=== PATIENT | male | born 1940 | race Caucasian/White ===

== ENCOUNTER 2017-09-18 09:45 | Inpatient (IN) | payer MEDICARE ==
[~2017-09-18] VITALS: Ht 172.7 cm; Wt 63.5 kg
[~2017-09-18 09:45] MED LIST: ASPI-482 PO; EZET1TAB35 PO; FAMO20TA5 PO; LOSA50TA6 PO; MULT-404 PO; PHEN100C4 PO; TAMS0.4C97 PO; VITA150T PO
[2017-09-18 10:27] LABS: BASO # 0.1 x10^3/uL (0.0-0.2); BASO % 1 % (0-3); EOS # 0.1 x10^3/uL (0.0-0.7); EOS % 2 % (0-3); HEMATOCRIT 38.8 % (39.0-53.0); HEMOGLOBIN 12.9 g/dL (13.0-17.5); LYMPH # 1.6 x10^3/uL (1.0-4.8); LYMPH % 21 % (24-48); MEAN CORPUSCULAR HEMOGLOBIN 33 pg (25-35); MEAN CORPUSCULAR HGB CONC 33 g/dL (31-37); MEAN CORPUSCULAR VOLUME 99 fL (79-100); MONO # 0.9 x10^3/uL (0.0-1.1); MONO % 13 % (0-9); NEUT # 4.5 x10^3uL (1.8-7.7); NEUT % 62 % (31-73); PLATELET COUNT 325 x10^3/uL (140-400); RED BLOOD COUNT 3.93 x10^6/uL (4.30-5.70); RED CELL DISTRIBUTION WIDTH 14.1 % (11.5-14.5); WHITE BLOOD COUNT 7.2 x10^3/uL (4.0-11.0)
--- NOTE | 2017-09-18 10:46 | PHYS DOC ---
Past History Past Medical History: CAD, Cancer, CVA, High Cholesterol, Hypertension, Other Past Surgical History: Appendectomy, Other Smoking: Non-smoker Alcohol Use: None Drug Use: None Adult General Chief Complaint Chief Complaint: UPPER EXTREMITY PAIN [facility] HPI 77-year-old female patient brought in by EMS because of left arm pain. Patient had multiple medical problems including coronary artery disease and stent placement, hypertension, dyslipidemia, BPH, bladder cancer and wanted fever and COPD. Patient complaining of sudden onset of left upper extremity pain from shoulder to wrist as a moderate and aching pain and rated his pain 5/10 that consulted at 9 AM and activated his life alert. Patient states the pain resolved after about 20 minutes at arrival to ER. Patient denies chest pain, shortness of breath, nausea vomiting, new focal neuro deficit, headache, fever and chills. Patient has chronic cervical injury and CT 8 paralysis with left hand weakness and contraction and deformity. Review of Systems Review of Systems Constitutional: Denies fever or chills [] Eyes: Denies change in visual acuity, redness, or eye pain [] HENT: Denies nasal congestion or sore throat [] Respiratory: Denies cough or shortness of breath [] Cardiovascular: No additional information not addressed in HPI [] GI: Denies abdominal pain, nausea, vomiting, bloody stools or diarrhea [] : Denies dysuria or hematuria [] Musculoskeletal: Denies back pain, reports left upper extremity pain[] Integument: Denies rash or skin lesions [] Neurologic: Denies headache, focal weakness or sensory changes [] Endocrine: Denies polyuria or polydipsia [] All other systems were reviewed and found to be within normal limits, except as documented in this note. Allergies Allergies Allergies Coded Allergies Type Severity Reaction Last Updated Verified No Known Drug Allergies 09/18/17 No Physical Exam Physical Exam Constitutional: Well developed, well nourished, no acute distress, non-toxic appearance. [] HENT: Normocephalic, atraumatic, bilateral external ears normal, oropharynx moist, no oral exudates, nose normal. [] Eyes: PERRLA, EOMI, conjunctiva normal, no discharge. [] Neck: Normal range of motion, no tenderness, supple, no stridor. [] Cardiovascular:Heart rate regular rhythm, no murmur [] Lungs & Thorax: Bilateral breath sounds clear to auscultation [] Abdomen: Bowel sounds normal, soft, no tenderness, no masses, no pulsatile masses. [] Skin: Warm, dry, no erythema, no rash. [] Back: No tenderness, no CVA tenderness. [] Extremities: No tenderness, no cyanosis, no clubbing, , no edema. [] Neurologic: Alert and oriented X 3, normal motor function, chronic left-handed weakness Psychologic: Affect normal, judgement normal, mood normal. [] Current Patient Data Vital Signs Vital Signs Date Time Temp Pulse Resp B/P (MAP) Pulse Ox O2 Delivery O2 Flow Rate FiO2 09/18/17 09:59 97.7 92 16 97 Room Air Lab Results Laboratory Tests Test 09/18/17 10:14 White Blood Count 7.2 x10^3/uL (4.0-11.0) Red Blood Count 3.93 x10^6/uL (4.30-5.70) L Hemoglobin 12.9 g/dL (13.0-17.5) L Hematocrit 38.8 % (39.0-53.0) L Mean Corpuscular Volume 99 fL (79-100) Mean Corpuscular Hemoglobin 33 pg (25-35) Mean Corpuscular Hemoglobin Concent 33 g/dL (31-37) Red Cell Distribution Width 14.1 % (11.5-14.5) Platelet Count 325 x10^3/uL (140-400) Neutrophils (%) (Auto) 62 % (31-73) Lymphocytes (%) (Auto) 21 % (24-48) L Monocytes (%) (Auto) 13 % (0-9) H Eosinophils (%) (Auto) 2 % (0-3) Basophils (%) (Auto) 1 % (0-3) Neutrophils # (Auto) 4.5 x10^3uL (1.8-7.7) Lymphocytes # (Auto) 1.6 x10^3/uL (1.0-4.8) Monocytes # (Auto) 0.9 x10^3/uL (0.0-1.1) Eosinophils # (Auto) 0.1 x10^3/uL (0.0-0.7) Basophils # (Auto) 0.1 x10^3/uL (0.0-0.2) Prothrombin Time 10.4 SEC (9.4-11.4) Prothrombin Time INR 1.0 (0.9-1.1) EKG EKG EKG interpreted by me. EKG at 1005 showed[ normal sinus rhythm at rate of 75. Left axis deviation. Inverted T wave in lateral leads that was new compared to the EKG dated March 03, 2017 with Q waves in V1 and V2 and V3 was longer than previous one with concern for left bundle branch block] Radiology/Procedures Radiology/Procedures Chest x-ray was unremarkable[] Course & Med Decision Making Course & Med Decision Making Pertinent Labs and Imaging studies reviewed. (See chart for details) Evaluation of patient in ER showed 77-year-old female patient with extensive cardiac problem brought in by EMS because of left arm pain that is OF arrival to ER. Patient had new changes in his EKG compared to the previous one in March 03 2017 without having chest pain in ER. Cardiac enzymes was unremarkable and patient had mild elevation of BNP. will call clerk hospitalist Dr. Ewing informed at 1140 and agreed with admitting patient to telemetry bed for observation and repeat troponin. Dragon Disclaimer Dragon Disclaimer This electronic medical record was generated, in whole or in part, using a voice recognition dictation system. Departure Departure: Impression: Primary Impression: Left arm pain Additional Impressions: Abnormal EKG CHF (congestive heart failure) Disposition: 09 ADMITTED INPATIENT (at 1140) Admitting Physician: Estephania Ewing Condition: IMPROVED Referrals: PCP,NO (PCP) Problem Qualifiers AMAURY ALVAREZ MD Sep 18, 2017 10:46
[2017-09-18 10:49] LABS: ALBUMIN/GLOBULIN RATIO 0.9 (1.0-1.7); ALK PHOS 167 U/L (46-116); ALT (SGPT) 22 U/L (16-63); ANION GAP 3 (6-14); AST (SGOT) 14 U/L (15-37); BLOOD UREA NITROGEN 11 mg/dL (8-26); BUN/CREATININE RATIO 10 (6-20); CALCIUM 8.3 mg/dL (8.5-10.1); CARBON DIOXIDE 32 mmol/L (21-32); CHLORIDE 107 mmol/L (98-107); CREATINE KINASE 56 U/L (39-308); CREATININE 1.1 mg/dL (0.7-1.3); GFR 64.6; GLUCOSE 100 mg/dL (70-99); PHENY 8.9 mcg/mL (10.0-20.0); POTASSIUM 3.8 mmol/L (3.5-5.1); SODIUM 142 mmol/L (136-145); TOTAL BILIRUBIN 0.2 mg/dL (0.2-1.0); TOTAL PROTEIN 6.2 g/dL (6.4-8.2)
--- NOTE | 2017-09-18 10:49 | RAD ---
AP portable chest radiograph 09/18/2017 Clinical History: Left arm pain. An AP portable erect digital radiograph of the chest was obtained. Comparison study is dated 03/03/2016. The cardiac silhouette is borderline enlarged. The thoracic aorta is mildly tortuous. Atherosclerotic calcification of the thoracic aorta is seen. A 5 mm calcified granuloma is seen involving the right upper lobe. There is a moderate-sized hiatal hernia. Emphysematous changes are seen involving both lungs. No acute pulmonary infiltrate is seen. No pleural effusion or pneumothorax is noted. Degenerative changes are seen involving the thoracic spine. Impression: No acute abnormality is seen.
--- NOTE | 2017-09-18 11:54 | EKG ---
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
[2017-09-18] MEDS ORDERED: ASPIRIN 81 MG TAB.CHEW PO ONE (12:15)
[2017-09-18 14:41] VITALS: BP 191/105
[2017-09-18 15:06] VITALS: BP 136/68
[2017-09-18 16:54] LABS: HEMATOCRIT 37.9 % (39.0-53.0); HEMOGLOBIN 12.8 g/dL (13.0-17.5); RED BLOOD COUNT 3.85 x10^6/uL (4.30-5.70)
--- NOTE | 2017-09-18 17:06 | HP ---
ADMIT DATE: 09/18/2017 HISTORY OF PRESENT ILLNESS: The patient is a 77-year-old male patient who was brought in by the emergency medical service because of left arm pain, who has multiple medical problems including coronary artery disease, stent placement, hypertension, dyslipidemia, benign prostatic hypertrophy, bladder cancer, and COPD. Apparently, the patient developed sudden onset of left upper extremity pain from shoulder to the wrist described as moderate aching pain rated as 5/10. The patient states the pain resolved after about 20 minutes on arrival. By the time he arrived to the ER, he is pain free. He denied any chest pain, shortness of breath, nausea or vomiting. No new focal neurological deficit, headache, fever or chills. The patient has chronic cervical injury at cervical spine 8 with paralysis and left hand weakness and contraction and deformity. He has also what seemed to be expressive aphasia and apparently, his EKG showed that he was in normal sinus rhythm at 75 beats per minute with inverted T waves in lateral leads that was new compared to an EKG done on 03/03/2017 with Q-waves in V1, V2, V3, and possible new onset left bundle branch block. His first set of cardiac enzyme was less than 0.017 and the patient was admitted to do 2 more sets of cardiac enzyme, consult the Cardiology, check his fasting lipid profile and decide on further management accordingly. PAST MEDICAL HISTORY: Significant for hypertension, hyperlipidemia, benign prostatic hypertrophy, has also bladder cancer, rheumatic fever and chronic obstructive pulmonary disease. PAST SURGICAL HISTORY: Significant for appendectomy, 2 hernia repairs, bladder cancer resection x3, and colonoscopy. He is also known to have senile macular degeneration. ALLERGIES: He has no known drug allergies. MEDICATIONS: He is currently on following medications: Aspirin 81 mg once a day, Vytorin 10/40 one tablet once a day at bedtime, famotidine 20 mg twice a day, losartan potassium 50 mg daily, multivitamin 1 tablet once a day, phenytoin sodium extended release 300 mg at bedtime, tamsulosin for Flomax 0.4 mg at bedtime and vitamin B complex 150 mg daily. FAMILY HISTORY: He has 1 brother and 3 sisters. His brother at the age of 84 because of myocardial infarction, alcoholism. His oldest sister of Alzheimer disease and has 2 sisters that are relatively healthy. His father and mother at age of 85, the cause of is unknown. SOCIAL HISTORY: He is , has 2 daughters and 1 son. He quit smoking about 7 years ago. He does not drink alcohol or use recreational drugs. 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 REVIEW OF SYSTEMS: As per history of present illness. PHYSICAL EXAMINATION: GENERAL: On arrival to the Emergency Room, he apparently was pale, somewhat cachectic, but no jaundice, cyanosis, or thyromegaly. No jugular venous distension. No limb edema. VITAL SIGNS: His heart rate was 92, blood pressure was 160/84, temperature was 97.7, respiratory rate was 16, and oxygen saturation was 97% on room air. HEAD, EYES, EARS, NOSE AND THROAT: Showed normocephalic, atraumatic. NECK: Supple. HEART: Showed normal first and second heart sounds with no gallop, rub or murmur. CHEST: Shows central trachea, equally reduced expansion, reduced air entry, vesicular breath sounds. No crepitation or rhonchi. ABDOMEN: Scaphoid, soft and nontender. NEUROLOGIC: He is awake, alert, responds appropriately. He seemed to have some form of nominal aphasia, difficulty finding words. However, all his cranial nerves are intact. He seemed to have some weakness and muscle wasting of his left upper extremity although he moves his both extremities without difficulty. He apparently ambulates without assistance or assistive devices. LABORATORY AND DIAGNOSTIC DATA: While in the Emergency Room, he has lab work done, which showed serum sodium of 142, potassium 3.8, chloride 107, bicarbonate 32, anion gap of 3, BUN 11, creatinine 1.1, estimated GFR was 65 mL per minute. His glucose was 100, calcium was 8.3. Total bilirubin, AST, ALT were normal. Alkaline phosphatase slightly elevated at 167. Total CK was 56 and troponin was 0.017. His beta natriuretic peptide was 872. Total protein was 6.2, albumin 3. His white cell count was 7200, hemoglobin 13, hematocrit 39, MCV 99, and platelet count 327,000. His prothrombin time was 10.4, INR of 1. His toxic screen showed his phenytoin was 8.9. His chest x-ray showed that the cardiac silhouette is borderline, the thoracic aorta is mildly tortuous, atherosclerotic calcification of the thoracic aorta is seen, 5 mm calcified granuloma seen involving the right upper lobe. There is moderate sized hiatal hernia. Emphysematous changes are seen involving with both lungs. No acute pulmonary infiltrate is seen. No pleural effusion or pneumothorax is noted. Degenerative changes are seen involving the thoracic spine. PLAN: My plan is to do 2 more sets of cardiac enzymes, check his fasting lipid profile and consult the Cardiology given that he has extensive cardiac surgery before, obviously given the fact that he has some problem with the cervical spine, might explain also this pain that has subsided. JULY SONG MD DR: LACEY/kamaljit JOB#: [id number] / [id number]
[2017-09-18 17:19] LABS: ALBUMIN 2.9 g/dL (3.4-5.0); ALBUMIN/GLOBULIN RATIO 0.9 (1.0-1.7); CALCIUM 8.7 mg/dL (8.5-10.1); CREATININE 1.1 mg/dL (0.7-1.3); GFR 64.6; POTASSIUM 4.1 mmol/L (3.5-5.1); TOTAL BILIRUBIN 0.2 mg/dL (0.2-1.0); TOTAL PROTEIN 6.1 g/dL (6.4-8.2)
[2017-09-18] MEDS ORDERED: CLOP75TA57 PO (17:34)
[2017-09-18] MEDS ORDERED: ASPI325T8 PO (17:38)
[2017-09-18] MEDS ORDERED: VIT1CAPS12 PO (17:38)
[2017-09-18] MEDS ORDERED: ATOR40TA PO (17:38)
[2017-09-18] MEDS ORDERED: LOSA50TA6 PO (17:38)
[2017-09-18] MEDS ORDERED: FISH12002 PO (17:38)
[2017-09-18] MEDS ORDERED: FERR-26 PO (17:38)
[2017-09-18] MEDS ORDERED: PHEN100C PO (17:38)
[2017-09-18] MEDS ORDERED: TAMS0.4C97 PO (17:38)
[2017-09-18] MEDS ORDERED: FAMO20TA5 PO (17:38)
[2017-09-18] MEDS ORDERED: VITA1TAB19 PO (17:38)
--- NOTE | 2017-09-18 18:01 | CONS ---
DATE OF CONSULTATION: 09/18/2017 REASON FOR CONSULTATION: Left arm pain. HISTORY OF PRESENT ILLNESS: The patient is a pleasant 77-year-old male with past medical history as noted below, who presents to the hospital in the setting of left pain. Apparently, he had been doing fairly well at home without any significant limitations such as chest pain, orthopnea and this morning had severe left heart pain and pushed his alert button and ended up in the hospital. Initial evaluation in the ER revealed hypertension with systolic blood pressure greater than 190. He denies any current chest pain, orthopnea, PND or lower extremity edema. He has been fairly active at home with NYHA functional class 1 symptoms. Of note, he was admitted to the hospital about 6 months ago at which point he was transferred to [facility] for coronary artery disease and had a PCI of the right coronary artery. Since that, he has been doing fairly well. His symptoms at that time are not similar in nature to his current presentation, although he is an unreliable historian given his CVA. PAST MEDICAL HISTORY: 1. Coronary artery disease, status post PCI to the RCA in the last year. 2. Hypertension. 3. Dyslipidemia. 4. Prior CVA 8 years ago. SOCIAL HISTORY: The patient denies any alcohol, tobacco or illicit drug use. He lives with his . ALLERGIES: No known drug allergies. REVIEW OF SYSTEMS: Negative for 10 out of 14 systems reviewed, unless otherwise mentioned above in the HPI. PHYSICAL EXAMINATION: VITAL SIGNS: Afebrile, blood pressure 160/82, heart rate 77, pulse ox 99% on room air. GENERAL: He is alert and oriented, in no acute distress. HEAD AND NECK: Unremarkable. HEART: Regular rate and rhythm with distant heart sounds. No significant murmurs, rubs, or gallops. LUNGS: Diminished S2. ABDOMEN: Soft, nontender, nondistended. EXTREMITIES: No clubbing, cyanosis or edema. NEUROLOGIC: No focal deficits. Pulmonary: No significant wheezes, rales, or rhonchi. Diminished breath sounds bilaterally. DIAGNOSTIC STUDIES: Bedside echocardiogram demonstrates mild LV dysfunction with an ejection fraction of 45%. He has at least moderate aortic stenosis with mean gradient of approximately 33 mmHg. INITIAL cardiac biomarkers were negative. EKG demonstrates new left bundle-branch block with possible suggestion of ischemia with concordance of the Q, R, S and T waves in the lateral leads. IMPRESSION: 1. Atypical chest pain, questionable unstable angina. 2. Hypertension. 3. Dyslipidemia. 4. Prior cardiac disease. 5. Moderate aortic stenosis. RECOMMENDATIONS: 1. I had a long discussion with the patient and his family, specifically with son and daughter with regards to his pathology and presentation. We will continue to monitor his cardiac enzymes and should they be elevated, we will transfer him to [place] for cardiac catheterization, otherwise, we will continue to monitor his blood pressure and optimize his blood pressure at which point hopefully he will have no further issues. He is known to have supposedly a moderate aortic stenosis and we will contact his primary vocational rehab consultant to determine if this is a new finding and if so we could consider a cardiac catheterization further assess as well. Thank you for this consultation. SANDY GUTHRIE MD DR: NOE/kamaljit JOB#: [id number] / [id number]
--- NOTE | 2017-09-18 18:11 | CARD ---
MR#: [id number] Date of Study: 09/18/2017 Ordering Physician: JULY SONG, Referring Physician: JULY SONG, Rufina: Myrtle Steward [facility] APPROVED REPORT EXAM: Two-dimensional and M-mode echocardiogram with Doppler and color Doppler. Other Information Quality : Average INDICATION CAD Left Arm Pain 2D DIMENSIONS Left Atrium(2D)4.6 (1.6-4.0cm)IVSd1.1 (0.7-1.1cm) LVDd3.9 (3.9-5.9cm)LVOT Diameter2.1 (1.8-2.4cm) IVSs1.3 (0.8-1.2cm)LVDs3.0 (2.5-4.0cm) FS (%) 22.8 %SV31.0 ml LVEF(%)46.4 (>50%) Aortic Valve AoV Peak Santy.387.7cm/sAoV VTI77.5cm AO Peak GR.60.1mmHgLVOT Peak Santy.106.1cm/s LVOT VTI 22.83cmAO Mean GR.35mmHg ERIS (VMAX)0.32tw9WSI (VTI)1.02cm2 Mitral Valve MV E Velocity0.3cm/sMV DECEL MDLQ2bz MV A Velocity0.8cm/sE/A Ratio0.4 Pulmonary Valve PV Peak Aqpghzjo402.9cm/sPV Peak Grad.5mmHg Tricuspid Valve TR P. Llhcciue39dp/sRAP [id number] TR Peak Gr.81dbQvUQZY53voDt LEFT VENTRICLE The left ventricle is normal size. There is mild to moderate concentric left ventricular hypertrophy. Moderate LV dysfunction. EF 40%. Septal motion suggestive of conduction abnormality, otherwise globa l hypokinesis. Tissue Doppler imaging reveals moderate left ventricular diastolic dysfunction. RIGHT VENTRICLE The right ventricle is normal size. There is normal right ventricular wall thickness. The right ventr icular systolic function is normal. ATRIA The left atrium is mildly dilated. The right atrium size is normal. The interatrial septum is intact with no evidence for an atrial septal defect or patent foramen ovale as noted on 2-D or Doppler imagi ng. AORTIC VALVE The aortic valve is severely calcified with decreased leaflet mobility. Doppler and Color Flow reveal ed mild aortic regurgitation. There is moderate to severe valvular aortic stenosis. ERIS by continuity equation is 0.9 cm2. MG of 30 mm Hg. Dimensionless index of 0.27. MITRAL VALVE The mitral valve is moderately thickened but opens well. A mild mitral valve prolapse is present. The re is no mitral valve stenosis. Doppler and Color-flow revealed mild mitral regurgitation. TRICUSPID VALVE The tricuspid valve is normal in structure and function. Doppler and Color Flow revealed trace to mil d tricuspid regurgitation. There is no tricuspid valve stenosis. PULMONIC VALVE Doppler and Color Flow revealed no pulmonic valvular regurgitation. There is no pulmonic valvular gianni nosis. GREAT VESSELS The aortic root is normal in size. The ascending aorta is normal in size. PERICARDIAL EFFUSION There is no pleural effusion. There is no evidence of significant pericardial effusion. Critical Notification Critical Value: No <Conclusion> Moderate LV dysfunction. EF 40%. Septal motion suggestive of conduction abnormality, otherwise global hypokinesis. There is moderate to severe valvular aortic stenosis. ERIS by continuity equation is 0.9 cm2. MG of 30 mm Hg. Dimensionless index of 0.27. Signed by : Rich Alfred, Electronically Approved : 09/18/2017 18:10:28
[2017-09-18 19:00] VITALS: BP 160/78
[2017-09-18 20:43] VITALS: BP 162/72
[2017-09-18] MEDS ORDERED: TAMSULOSIN 0.4 MG CAP.ER.24H. PO SCH (21:00)
[2017-09-18] MEDS ORDERED: PHENYTOIN SODIUM EXTENDED 100 MG CAPSULE PO SCH (21:00)
[2017-09-18] MEDS ORDERED: ATORVASTATIN CALCIUM 20 MG TABLET PO SCH (21:00)
[2017-09-18] MEDS: MULTIVITAMIN I-VITE TABLET. PO SCH (21:29)
[2017-09-18] MEDS: FAMOTIDINE 20 MG TABLET PO SCH (21:29)
[2017-09-18 23:03] VITALS: BP 112/57
[2017-09-19 03:17] VITALS: BP 102/63
[2017-09-19 06:33] LABS: BASO # 0.1 x10^3/uL (0.0-0.2); BASO % 1 % (0-3); EOS # 0.1 x10^3/uL (0.0-0.7); EOS % 2 % (0-3); HEMATOCRIT 35.6 % (39.0-53.0); HEMOGLOBIN 12.1 g/dL (13.0-17.5); LYMPH # 1.7 x10^3/uL (1.0-4.8); LYMPH % 24 % (24-48); MEAN CORPUSCULAR HEMOGLOBIN 33 pg (25-35); MEAN CORPUSCULAR HGB CONC 34 g/dL (31-37); MEAN CORPUSCULAR VOLUME 98 fL (79-100); MONO # 0.9 x10^3/uL (0.0-1.1); MONO % 13 % (0-9); NEUT # 4.1 x10^3uL (1.8-7.7); NEUT % 59 % (31-73); PLATELET COUNT 298 x10^3/uL (140-400); RED BLOOD COUNT 3.62 x10^6/uL (4.30-5.70); WHITE BLOOD COUNT 6.9 x10^3/uL (4.0-11.0)
[2017-09-19 06:42] LABS: CALCIUM 8.5 mg/dL (8.5-10.1); CREATININE 1.2 mg/dL (0.7-1.3); GFR 58.4; MAGNESIUM 1.8 mg/dL (1.8-2.4); POTASSIUM 4.3 mmol/L (3.5-5.1)
[2017-09-19 07:34] VITALS: BP 100/48
[2017-09-19] MEDS ORDERED: FERROUS SULFATE 325 MG TABLET. PO SCH (09:00)
[2017-09-19] MEDS ORDERED: ASPIRIN 325 MG TABLET PO SCH (09:00)
[2017-09-19] MEDS ORDERED: CLOPIDOGREL BISULFATE 75 MG TABLET PO SCH (09:00)
[2017-09-19] MEDS ORDERED: LOSARTAN 50 MG TABLET. PO SCH (09:00)
[2017-09-19] MEDS ORDERED: VITAMIN B COMPLEX CAPSULE. PO SCH (09:00)
[2017-09-19] MEDS ORDERED: OMEGA-3 FATTY ACIDS/FISH OIL 1,000 MG CAPSULE. PO SCH (09:00)
[2017-09-19 09:06] VITALS: BP 134/56
[2017-09-19] MEDS: MULTIVITAMIN I-VITE TABLET. PO SCH (09:08)
[2017-09-19] MEDS: FAMOTIDINE 20 MG TABLET PO SCH (09:08)
[2017-09-19 14:41] VITALS: BP 144/69
--- NOTE | 2017-09-19 17:43 | PDOC ---
SUBJECTIVE: Patient seen and examined The patient is feeling better. OBJECTIVE: Problems: Problems Medical Problems: (1) Abnormal EKG Status: Acute (2) CHF (congestive heart failure) Status: Acute (3) Left arm pain Status: Acute 1. Atypical chest pain. Pain resolved. [place] ruled out. Echocardiogram with mildly decreased ejection fraction at 40%. Continuing medical treatment. Follow up with the patient's primary freezing room worker. 2. Hypertension. Better controlled. Continue medical treatment. 3. Dyslipidemia. Continue statin. 4. Moderate aortic stenosis. His ECHO shows moderate to moderate severe aortic stenosis. Ejection fraction is mildly decreased at 40%. Patient is feeling and looking well. We'll continue treatment as above. Follow-up with his primary freezing room worker in approximately 3 weeks. Vital Signs: Vital Signs Date Time Temp Pulse Resp B/P (MAP) Pulse Ox O2 Delivery O2 Flow Rate FiO2 09/19/17 14:41 97.8 84 15 144/69 (94) Room Air 09/19/17 09:06 94 09/18/17 13:34 0 I & O Intake and Output 09/19/17 07:00 Intake Total 0 ml Balance 0 ml Intake Oral 0 ml Labs: Laboratory Tests Test 09/18/17 10:14 09/18/17 14:00 09/18/17 16:45 09/18/17 22:20 White Blood Count 7.2 x10^3/uL (4.0-11.0) 7.0 x10^3/uL (4.0-11.0) Red Blood Count 3.93 x10^6/uL (4.30-5.70) 3.85 x10^6/uL (4.30-5.70) Hemoglobin 12.9 g/dL (13.0-17.5) 12.8 g/dL (13.0-17.5) Hematocrit 38.8 % (39.0-53.0) 37.9 % (39.0-53.0) Mean Corpuscular Volume 99 fL (79-100) 99 fL (79-100) Mean Corpuscular Hemoglobin 33 pg (25-35) 33 pg (25-35) Mean Corpuscular Hemoglobin Concent 33 g/dL (31-37) 34 g/dL (31-37) Red Cell Distribution Width 14.1 % (11.5-14.5) 14.0 % (11.5-14.5) Platelet Count 325 x10^3/uL (140-400) 318 x10^3/uL (140-400) Neutrophils (%) (Auto) 62 % (31-73) Lymphocytes (%) (Auto) 21 % (24-48) Monocytes (%) (Auto) 13 % (0-9) Eosinophils (%) (Auto) 2 % (0-3) Basophils (%) (Auto) 1 % (0-3) Neutrophils # (Auto) 4.5 x10^3uL (1.8-7.7) Lymphocytes # (Auto) 1.6 x10^3/uL (1.0-4.8) Monocytes # (Auto) 0.9 x10^3/uL (0.0-1.1) Eosinophils # (Auto) 0.1 x10^3/uL (0.0-0.7) Basophils # (Auto) 0.1 x10^3/uL (0.0-0.2) Prothrombin Time 10.4 SEC (9.4-11.4) Prothromb Time International Ratio 1.0 (0.9-1.1) Sodium Level 142 mmol/L (136-145) 143 mmol/L (136-145) Potassium Level 3.8 mmol/L (3.5-5.1) 4.1 mmol/L (3.5-5.1) Chloride Level 107 mmol/L (98-107) 108 mmol/L (98-107) Carbon Dioxide Level 32 mmol/L (21-32) 31 mmol/L (21-32) Anion Gap 3 (6-14) 4 (6-14) Blood Urea Nitrogen 11 mg/dL (8-26) 13 mg/dL (8-26) Creatinine 1.1 mg/dL (0.7-1.3) 1.1 mg/dL (0.7-1.3) Estimated GFR (Cockcroft-Gault) 64.6 64.6 BUN/Creatinine Ratio 10 (6-20) 12 (6-20) Glucose Level 100 mg/dL (70-99) 106 mg/dL (70-99) Calcium Level 8.3 mg/dL (8.5-10.1) 8.7 mg/dL (8.5-10.1) Total Bilirubin 0.2 mg/dL (0.2-1.0) 0.2 mg/dL (0.2-1.0) Aspartate Amino Transf (AST/SGOT) 14 U/L (15-37) 15 U/L (15-37) Alanine Aminotransferase (ALT/SGPT) 22 U/L (16-63) 22 U/L (16-63) Alkaline Phosphatase 167 U/L (46-116) 172 U/L (46-116) Creatine Kinase 56 U/L (39-308) Creatine Kinase MB (Mass) 1.1 ng/mL (0.0-3.6) Creatine Kinase MB Relative Index 2.0 % (0-4) Troponin I Quantitative 0.017 ng/mL (0-0.055) 0.019 ng/mL (0-0.055) 0.028 ng/mL (0-0.055) WZ-Fwx-H-Type Natriuretic Peptide 872 pg/mL (0-449) Total Protein 6.2 g/dL (6.4-8.2) 6.1 g/dL (6.4-8.2) Albumin 3.0 g/dL (3.4-5.0) 2.9 g/dL (3.4-5.0) Albumin/Globulin Ratio 0.9 (1.0-1.7) 0.9 (1.0-1.7) Phenytoin (Dilantin) Level 8.9 mcg/mL (10.0-20.0) Phenytoin Last Dose Date 09/17/17 Phenytoin Last Dose Time 2100 Nasal Screen MRSA (PCR) Negative (Negative) Magnesium Level 2.0 mg/dL (1.8-2.4) Test 09/19/17 06:06 White Blood Count 6.9 x10^3/uL (4.0-11.0) Red Blood Count 3.62 x10^6/uL (4.30-5.70) Hemoglobin 12.1 g/dL (13.0-17.5) Hematocrit 35.6 % (39.0-53.0) Mean Corpuscular Volume 98 fL (79-100) Mean Corpuscular Hemoglobin 33 pg (25-35) Mean Corpuscular Hemoglobin Concent 34 g/dL (31-37) Red Cell Distribution Width 14.0 % (11.5-14.5) Platelet Count 298 x10^3/uL (140-400) Neutrophils (%) (Auto) 59 % (31-73) Lymphocytes (%) (Auto) 24 % (24-48) Monocytes (%) (Auto) 13 % (0-9) Eosinophils (%) (Auto) 2 % (0-3) Basophils (%) (Auto) 1 % (0-3) Neutrophils # (Auto) 4.1 x10^3uL (1.8-7.7) Lymphocytes # (Auto) 1.7 x10^3/uL (1.0-4.8) Monocytes # (Auto) 0.9 x10^3/uL (0.0-1.1) Eosinophils # (Auto) 0.1 x10^3/uL (0.0-0.7) Basophils # (Auto) 0.1 x10^3/uL (0.0-0.2) Sodium Level 143 mmol/L (136-145) Potassium Level 4.3 mmol/L (3.5-5.1) Chloride Level 108 mmol/L (98-107) Carbon Dioxide Level 32 mmol/L (21-32) Anion Gap 3 (6-14) Blood Urea Nitrogen 15 mg/dL (8-26) Creatinine 1.2 mg/dL (0.7-1.3) Estimated GFR (Cockcroft-Gault) 58.4 Glucose Level 84 mg/dL (70-99) Calcium Level 8.5 mg/dL (8.5-10.1) Magnesium Level 1.8 mg/dL (1.8-2.4) MIR ROBLERO MD Sep 19, 2017 17:43
--- NOTE | 2017-09-19 21:32 | DS ---
DATE OF DISCHARGE: 09/19/2017 HOSPITAL COURSE: The patient is sitting on the edge of the bed, in no apparent distress. On questioning him, he denied any complaint. Nursing staff did not voice any concern. The patient has had no further episode of pain in his left upper extremity. He has 3 sets of cardiac enzymes, which basically ruled out myocardial infarction. 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 PHYSICAL EXAMINATION: GENERAL: When I examined him this afternoon, he looked well and was clearly in no apparent respiratory distress, pale, but no jaundice, cyanosis, or thyromegaly. No jugular venous distension. No limb edema. VITAL SIGNS: Her heart rate was 84, blood pressure 144/69, temperature was 97.8, respiratory rate was 15, and oxygen saturation was 94% on room air. HEAD, EYES, EARS, NOSE, AND THROAT: Showed normocephalic, atraumatic. NECK: Supple. HEART: Showed normal first and second heart sounds with no gallop, rub or murmur. CHEST: Clear to auscultation. No crepitation or rhonchi. ABDOMEN: Distended, soft, and nontender. No guarding or rigidity. No organomegaly. Hernial orifice intact. Bowel sounds normal. NEUROLOGIC: He is awake, alert, responding appropriately. Cranial nerves intact. He moves his extremities without difficulty, although he has some weakness in his left upper extremity. He has also what seems to be nominal aphasia. His intake and output were incompletely recorded. LABORATORY DATA: This morning showed a serum sodium 143, potassium 4.3, chloride 108, bicarbonate 32, anion gap of 3, BUN 15, creatinine 1.2, estimated GFR was 58 mL per minute. His glucose was 84, calcium was 8.5, magnesium was 1.8. His white cell count was 6900, hemoglobin 12, hematocrit 36, MCV 98, and platelet count 298,000. His prothrombin time was 10.4, INR of 1. DISCHARGE MEDICATIONS: He was discharged home to continue an aspirin 325 mg once a day, atorvastatin. He was discharged also on Plavix 75 mg once a day, famotidine 20 mg once a day, ferrous sulfate 325 mg once a day, fish oil 2 capsules once a day, losartan potassium 50 mg once a day, phenytoin sodium extended release 4 capsules at bedtime, Flomax 0.4 mg at bedtime, multivitamin 1 tablet once a day, and vitamin B complex 1 tablet once a day. FINAL DISCHARGE DIAGNOSES: Coronary artery disease, status post PCI to the right coronary artery in the last year, hypertension, dyslipidemia, prior CVA about 8 years ago, moderate aortic stenosis, atypical chest pain. JULY SONG MD DR: LACEY/kamaljit JOB#: [id number] / [id number]
== END 2017-09-19 16:00 | disposition home or self-care (01) | DRG 313 ==
LOC: ER 09:45 → ICU 11:40 → OBSVTOIN 14:14
PROVIDERS: ADMIT Internal Medicine; ATTEND Internal Medicine
DX: R07.89 Other chest pain (principal); I25.10 Atherosclerotic heart disease of native coronary artery without angina pectoris; I11.0 Hypertensive heart disease with heart failure; I35.0 Nonrheumatic aortic (valve) stenosis; I50.9 Heart failure, unspecified; E78.00 Pure hypercholesterolemia, unspecified; E78.5 Hyperlipidemia, unspecified; J44.9 Chronic obstructive pulmonary disease, unspecified; G83.24 Monoplegia of upper limb affecting left nondominant side; N40.0 Benign prostatic hyperplasia without lower urinary tract symptoms; Z82.0 Family history of epilepsy and other diseases of the nervous system; Z82.49 Family history of ischemic heart disease and other diseases of the circulatory system; Z85.51 Personal history of malignant neoplasm of bladder; Z86.73 Personal history of transient ischemic attack (TIA), and cerebral infarction without residual deficits; Z87.891 Personal history of nicotine dependence; Z90.49 Acquired absence of other specified parts of digestive tract; Z95.5 Presence of coronary angioplasty implant and graft
CPT/HCPCS: 36415; 71010; 80048; 80053; 80185; 82553; 83735; 83880; 84484; 85025; 85027; 85610; 87641; 93005; 93306; G0378; G0379

== ENCOUNTER → 2017-12-17 | Outpatient (CLI) | payer MEDICARE ==
[~2017-12-17] MED LIST changes: +ASPI325T8 PO; +ATOR40TA PO; +CLOP75TA57 PO; +FERR325T14 PO; +FISH12002 PO; +PHEN100C PO; +VIT1CAPS12 PO; +VITA1TAB19 PO
[2017-12-17 15:34] LABS: BASO # 0.1 x10^3/uL (0.0-0.2); BASO % 1 % (0-3); EOS # 0.2 x10^3/uL (0.0-0.7); EOS % 3 % (0-3); HEMATOCRIT 39.4 % (39.0-53.0); HEMOGLOBIN 13.3 g/dL (13.0-17.5); LYMPH # 0.9 x10^3/uL (1.0-4.8); LYMPH % 13 % (24-48); MEAN CORPUSCULAR HEMOGLOBIN 33 pg (25-35); MEAN CORPUSCULAR HGB CONC 34 g/dL (31-37); MEAN CORPUSCULAR VOLUME 98 fL (79-100); MONO # 0.8 x10^3/uL (0.0-1.1); MONO % 12 % (0-9); NEUT # 4.9 x10^3uL (1.8-7.7); NEUT % 72 % (31-73); PLATELET COUNT 343 x10^3/uL (140-400); RED BLOOD COUNT 4.03 x10^6/uL (4.30-5.70); RED CELL DISTRIBUTION WIDTH 14.2 % (11.5-14.5); WHITE BLOOD COUNT 6.9 x10^3/uL (4.0-11.0)
[2017-12-17 15:48] LABS: ALBUMIN 3.1 g/dL (3.4-5.0); ALBUMIN/GLOBULIN RATIO 0.8 (1.0-1.7); CALCIUM 8.7 mg/dL (8.5-10.1); CREATININE 1.6 mg/dL (0.7-1.3); GFR 41.9; POTASSIUM 3.7 mmol/L (3.5-5.1); TOTAL BILIRUBIN 0.2 mg/dL (0.2-1.0); TOTAL PROTEIN 7.1 g/dL (6.4-8.2)
== END | disposition home or self-care (01) ==
LOC: LAB 14:32
PROVIDERS: ATTEND Psychiatry & Neurology Neurology
DX: I63.9 Cerebral infarction, unspecified (principal); I11.0 Hypertensive heart disease with heart failure; E78.00 Pure hypercholesterolemia, unspecified; I50.9 Heart failure, unspecified; J44.9 Chronic obstructive pulmonary disease, unspecified; E55.9 Vitamin D deficiency, unspecified; R26.81 Unsteadiness on feet; R56.9 Unspecified convulsions; R79.89 Other specified abnormal findings of blood chemistry; Z72.0 Tobacco use
CPT/HCPCS: 36415; 80053; 82306; 82550; 82607; 84439; 84443; 85025

== ENCOUNTER 2018-02-07 11:35 | Emergency (ER) | payer MEDICARE ==
[~2018-02-07] VITALS: Ht 172.7 cm; Wt 54.4 kg
[2018-02-07] MEDS ORDERED: IV NORMAL SALINE 1,000ML 1,000 ML IV SCH (12:01)
[2018-02-07] MEDS ORDERED: HYDROmorphone PF 2 MG/ML VIAL IV/SQ PRN (12:30)
--- NOTE | 2018-02-07 12:30 | PHYS DOC ---
Past History Past Medical History: CAD, Cancer, CVA, High Cholesterol, Hypertension, Other Past Surgical History: Appendectomy, Cancer Surgery, Other Smoking: Non-smoker Alcohol Use: None Drug Use: None Adult General Chief Complaint Chief Complaint: GROIN PAIN HPI HPI 77-year-old male presents with right lower quadrant abdominal pain. The patient was sent by Dr. Rod with concern for incarcerated right inguinal hernia. After the patient awoke this morning, he had significant swelling around his known hernia. He was in severe 10 out of 10 pain. He has had at least 2 episodes of emesis the pain. On arrival to the ED, the swelling has decreased and his pain is 4 out of 10 but not gone. He has been having regular bowel movements. He denies fever, chills, constipation, diarrhea. The patient has not been able to have his hernia or other more pressing medical problems. The patient has been taking all his medications as prescribed. Review of Systems Review of Systems Constitutional: Denies fever or chills [] Eyes: Denies change in visual acuity, redness, or eye pain [] HENT: Denies nasal congestion or sore throat [] Respiratory: Denies cough or shortness of breath [] Cardiovascular: No additional information not addressed in HPI [] GI: Denies bloody stools or diarrhea [] : Denies dysuria or hematuria [] Musculoskeletal: Denies back pain or joint pain [] Integument: Denies rash or skin lesions [] Neurologic: Denies headache, focal weakness or sensory changes [] Endocrine: Denies polyuria or polydipsia [] All other systems were reviewed and found to be within normal limits, except as documented in this note. Current Medications Current Medications Current Medications Medications (Trade) Dose Ordered Sig/Marisol Start Time Stop Time Status Last Admin Dose Admin Hydromorphone HCl (Dilaudid) 1 mg PRN Q15MIN PRN 02/07/18 12:30 Ondansetron HCl (Zofran) 4 mg 1X ONCE 02/07/18 12:15 02/07/18 12:16 UNV Sodium Chloride 1,000 ml @ 1,000 mls/hr Q1H 02/07/18 12:01 02/07/18 13:00 Allergies Allergies Allergies Coded Allergies Type Severity Reaction Last Updated Verified No Known Drug Allergies 09/18/17 No Physical Exam Physical Exam Constitutional: Well developed, well nourished, no acute distress, non-toxic appearance. [] HENT: Normocephalic, atraumatic, bilateral external ears normal, oropharynx moist, no oral exudates, nose normal. [] Eyes: PERRLA, EOMI, conjunctiva normal, no discharge. [] Neck: Normal range of motion, no tenderness, supple, no stridor. [] Cardiovascular:Heart rate regular rhythm, no murmur [] Lungs & Thorax: Bilateral breath sounds clear to auscultation [] Abdomen: Bowel sounds normal, soft, right lower quadrant tenderness. There is a small 3 cm mass in the right inguinal area. He is soft, but is not reducible.. [ ] Skin: Warm, dry, no erythema, no rash. [] Back: No tenderness, no CVA tenderness. [] Extremities: No tenderness, no cyanosis, no clubbing, ROM intact, no edema. [] Neurologic: Alert and oriented X 3, normal motor function, normal sensory function, no focal deficits noted. [] Psychologic: Affect normal, judgement normal, mood normal. [] Current Patient Data Vital Signs Vital Signs Date Time Temp Pulse Resp B/P (MAP) Pulse Ox O2 Delivery O2 Flow Rate FiO2 02/07/18 12:18 68 16 163/99 (120) 99 Room Air 02/07/18 11:48 97.9 EKG EKG [] Radiology/Procedures Radiology/Procedures EXAM: Abdomen and pelvis CT with intravenous contrast. HISTORY: Inguinal hernia. TECHNIQUE: Computed tomographic images of the abdomen and pelvis were obtained following the administration of 75 cc Isovue-370 intravenous contrast. Multiplanar reformatting was performed. *One or more of the following individualized dose reduction techniques were utilized for this examination: 1. Automated exposure control. 2. Adjustment of the mA and/or kV according to patient size. 3. Use of iterative reconstruction technique. COMPARISON: 03/21/2012. FINDINGS: Evaluation of the lower thorax demonstrates basilar and posterior dependent atelectasis. There is mild emphysema. There is mild cardiomegaly. There is a moderate hiatal hernia. There is callus formation surrounding lateral eighth, ninth, 10th and 11th rib fractures. There are multiple hypodense lesions within the liver, too small to characterize. There is fatty infiltration of the liver along the falciform ligament. The gallbladder, pancreas and spleen are unremarkable. There is a 1.6 cm right adrenal nodule. There are multiple bilateral renal cysts, the largest of which is seen within the upper pole of the left kidney measuring 6.8 cm. No solid renal lesion is seen. The appendix is surgically absent. There is colonic diverticulosis without convincing diverticulitis. The prostate is mildly enlarged. There is a small right inguinal hernia containing fluid. There is a 2.0 cm hypodense lesion within the right lower quadrant near the inguinal canal. There is a 3.0 cm hypodense lesion with small calcification within the left lower quadrant near the inguinal canal. There is an ectatic atherosclerotic abdominal aorta measuring 2.6 cm in maximum caliber. There is heavily calcified plaque involving the proximal main aortic branch vessels. There is no suspicious osseous lesion. There is degenerative change throughout the visualized spine. IMPRESSION: 1. Small fluid collection within a right inguinal hernia. There is a 2.0 cm hypodense lesion within the right lower quadrant adjacent to the inguinal canal and there is a 3.0 cm fluid density lesion with calcification within the left lower quadrant adjacent to the inguinal canal. The imaging appearance does not favor lymphadenopathy, undescended testes or abscesses. This may be postoperative seromas given evidence of prior lower abdominal surgery. 3. Multiple renal cysts. 4. Moderate hiatal hernia 5. Multiple hypodense lesions within the liver. In the absence of known malignancy, these likely represent cysts or hemangiomas. 6. Cardiomegaly. 7. Healed or healing left eighth through 11th rib fractures. Electronically signed by: Cori Hendrickson MD (02/07/2018 1:33 PM) [id number] [] Course & Med Decision Making Course & Med Decision Making Pertinent Labs and Imaging studies reviewed. (See chart for details) The patient's CT scan was negative for new findings. There was no incarcerated bowel in the inguinal hernia. There were small fluid collections in the area. The patient is feeling much better at this time. The patient's labs are unremarkable. His lactic acid is normal. He did not actually receive any narcotic pain medication because he was feeling better prior to the administration of medication. We discussed the fact that he could develop an incarcerated hernia sometime in the future. If his symptoms return, he will come back to the ED. He feels that he is ready to go home at this time. [] Errol Disclaimer Dragon Disclaimer This electronic medical record was generated, in whole or in part, using a voice recognition dictation system. Departure Departure: Referrals: J LUIS ROD MD (PCP) ELISABET VICTORIA DO February 07, 2018 12:30
[2018-02-07 12:35] LABS: BASO # 0.1 x10^3/uL (0.0-0.2); BASO % 2 % (0-3); EOS # 0.1 x10^3/uL (0.0-0.7); EOS % 2 % (0-3); HEMOGLOBIN 12.2 g/dL (13.0-17.5); LYMPH # 0.9 x10^3/uL (1.0-4.8); LYMPH % 20 % (24-48); MEAN CORPUSCULAR HEMOGLOBIN 33 pg (25-35); MEAN CORPUSCULAR HGB CONC 33 g/dL (31-37); MEAN CORPUSCULAR VOLUME 99 fL (79-100); MONO # 0.5 x10^3/uL (0.0-1.1); MONO % 11 % (0-9); NEUT # 3.2 x10^3uL (1.8-7.7); NEUT % 66 % (31-73); PLATELET COUNT 363 x10^3/uL (140-400); RED BLOOD COUNT 3.74 x10^6/uL (4.30-5.70); RED CELL DISTRIBUTION WIDTH 14.4 % (11.5-14.5); WHITE BLOOD COUNT 4.8 x10^3/uL (4.0-11.0)
[2018-02-07 12:45] LABS: ALBUMIN/GLOBULIN RATIO 0.9 (1.0-1.7); CALCIUM 8.2 mg/dL (8.5-10.1); CREATININE 1.1 mg/dL (0.7-1.3); GFR 64.6; TOTAL BILIRUBIN 0.3 mg/dL (0.2-1.0); TOTAL PROTEIN 6.2 g/dL (6.4-8.2)
[2018-02-07] MEDS ORDERED: ONDANSETRON PF 4 MG/2 ML VIAL. IV ONE (12:45)
[2018-02-07] MEDS ORDERED: IOHEXOL 300 MG/ML 75 ML VIAL. IV ONE (13:00)
--- NOTE | 2018-02-07 13:36 | RAD ---
EXAM: Abdomen and pelvis CT with intravenous contrast. HISTORY: Inguinal hernia. TECHNIQUE: Computed tomographic images of the abdomen and pelvis were obtained following the administration of 75 cc Isovue-370 intravenous contrast. Multiplanar reformatting was performed. *One or more of the following individualized dose reduction techniques were utilized for this examination: 1. Automated exposure control. 2. Adjustment of the mA and/or kV according to patient size. 3. Use of iterative reconstruction technique. COMPARISON: 03/21/2012. FINDINGS: Evaluation of the lower thorax demonstrates basilar and posterior dependent atelectasis. There is mild emphysema. There is mild cardiomegaly. There is a moderate hiatal hernia. There is callus formation surrounding lateral eighth, ninth, 10th and 11th rib fractures. There are multiple hypodense lesions within the liver, too small to characterize. There is fatty infiltration of the liver along the falciform ligament. The gallbladder, pancreas and spleen are unremarkable. There is a 1.6 cm right adrenal nodule. There are multiple bilateral renal cysts, the largest of which is seen within the upper pole of the left kidney measuring 6.8 cm. No solid renal lesion is seen. The appendix is surgically absent. There is colonic diverticulosis without convincing diverticulitis. The prostate is mildly enlarged. There is a small right inguinal hernia containing fluid. There is a 2.0 cm hypodense lesion within the right lower quadrant near the inguinal canal. There is a 3.0 cm hypodense lesion with small calcification within the left lower quadrant near the inguinal canal. There is an ectatic atherosclerotic abdominal aorta measuring 2.6 cm in maximum caliber. There is heavily calcified plaque involving the proximal main aortic branch vessels. There is no suspicious osseous lesion. There is degenerative change throughout the visualized spine. IMPRESSION: 1. Small fluid collection within a right inguinal hernia. There is a 2.0 cm hypodense lesion within the right lower quadrant adjacent to the inguinal canal and there is a 3.0 cm fluid density lesion with calcification within the left lower quadrant adjacent to the inguinal canal. The imaging appearance does not favor lymphadenopathy, undescended testes or abscesses. This may be postoperative seromas given evidence of prior lower abdominal surgery. 3. Multiple renal cysts. 4. Moderate hiatal hernia 5. Multiple hypodense lesions within the liver. In the absence of known malignancy, these likely represent cysts or hemangiomas. 6. Cardiomegaly. 7. Healed or healing left eighth through 11th rib fractures. Electronically signed by: Cori Hendrickson MD (02/07/2018 1:33 PM) [id number]
[2018-02-07 14:20] VITALS: BP 185/91
== END 2018-02-07 14:53 | disposition home or self-care (01) ==
LOC: ER 11:35
DX: K40.90 Unilateral inguinal hernia, without obstruction or gangrene, not specified as recurrent (principal); E78.00 Pure hypercholesterolemia, unspecified; I25.10 Atherosclerotic heart disease of native coronary artery without angina pectoris; I10 Essential (primary) hypertension; Z86.73 Personal history of transient ischemic attack (TIA), and cerebral infarction without residual deficits; Z90.49 Acquired absence of other specified parts of digestive tract
CPT/HCPCS: 36415; 74177; 80053; 83605; 85025; 85610; 85730; 99285; Q9967; J7030

== ENCOUNTER 2018-02-12 12:59 | Emergency (ER) | payer MEDICARE ==
[~2018-02-12] VITALS: Ht 172.7 cm; Wt 54.4 kg
[2018-02-12 14:17] LABS: BASO # 0.1 x10^3/uL (0.0-0.2); BASO % 1 % (0-3); EOS # 0.2 x10^3/uL (0.0-0.7); EOS % 3 % (0-3); HEMATOCRIT 33.1 % (39.0-53.0); HEMOGLOBIN 10.9 g/dL (13.0-17.5); LYMPH # 1.4 x10^3/uL (1.0-4.8); LYMPH % 22 % (24-48); MEAN CORPUSCULAR HEMOGLOBIN 33 pg (25-35); MEAN CORPUSCULAR HGB CONC 33 g/dL (31-37); MEAN CORPUSCULAR VOLUME 99 fL (79-100); MONO # 0.9 x10^3/uL (0.0-1.1); MONO % 14 % (0-9); NEUT # 3.7 x10^3uL (1.8-7.7); NEUT % 60 % (31-73); PLATELET COUNT 339 x10^3/uL (140-400); RED BLOOD COUNT 3.33 x10^6/uL (4.30-5.70); RED CELL DISTRIBUTION WIDTH 14.4 % (11.5-14.5); WHITE BLOOD COUNT 6.2 x10^3/uL (4.0-11.0)
--- NOTE | 2018-02-12 14:29 | EKG ---
[address] [address] Test Date: 2018-02-12 Test Time: 13:46:10 Pat Name: VALARIE POLLACK Department: Room: Gender: M Spinning Doffer: [place] : 1940 Requested By: COLLEEN TOWNSEND Order Number: [id number] Reading MD: Measurements Intervals Rawlings Rate: 77 P: 59 HI: 162 QRS: 10 QRSD: 106 T: 44 QT: 380 QTc: 432 Interpretive Statements SINUS RHYTHM AMPLITUDE CRITERIA FOR LVH QRS(T) CONTOUR ABNORMALITY CONSIDER ANTEROSEPTAL MYOCARDIAL DAMAGE POSSIBLY ABNORMAL ECG RI6.01 No previous ECG available for comparison
[2018-02-12 14:31] LABS: ALBUMIN 2.9 g/dL (3.4-5.0); ALK PHOS 123 U/L (46-116); ALT (SGPT) 24 U/L (16-63); ANION GAP 5 (6-14); AST (SGOT) 17 U/L (15-37); BLOOD UREA NITROGEN 17 mg/dL (8-26); CALCIUM 8.1 mg/dL (8.5-10.1); CARBON DIOXIDE 30 mmol/L (21-32); CHLORIDE 109 mmol/L (98-107); DIRECT BILIRUBIN < 0.1 mg/dL (0.0-0.2); GFR 72.1; GLUCOSE 94 mg/dL (70-99); LIPASE 249 U/L (73-393); POTASSIUM 3.7 mmol/L (3.5-5.1); SODIUM 144 mmol/L (136-145); TOTAL BILIRUBIN 0.2 mg/dL (0.2-1.0); TOTAL PROTEIN 5.9 g/dL (6.4-8.2)
[2018-02-12 15:56] LABS: BILIRUBIN,URINE NEG (NEG); CLARITY,URINE CLEAR; COLOR,URINE YELLOW; GLUCOSE,URINE NEG (NEG)
[2018-02-12 15:57] LABS: BACTERIA,URINE 0 /HPF (0-FEW); NITRITE,URINE NEG (NEG); SQUAMOUS EPITHELIAL CELL,UR OCC /LPF; UROBILINOGEN,URINE 0.2 mg/dL (0.2 mg/dL)
[2018-02-12 15:58] LABS: HYALINE CASTS, URINE OCC /HPF
--- NOTE | 2018-02-12 17:16 | RAD ---
Abdominal wall ultrasound, 02/12/2018: HISTORY: Pain, lump The right groin region was carefully scanned in the area of clinical concern. Initially no subcutaneous lump was present. With Valsalva, soft tissue as well as a fluid collection extends into the subcutaneous soft tissues at this level. It is unclear whether this represents free fluid, fluid within a herniated loop of bowel or a combination of the above. It subsequently reduces. IMPRESSION: Right inguinal hernia Electronically signed by: Tremaine Schmidt MD (02/12/2018 5:13 PM) [facility]
[2018-02-12 17:26] VITALS: BP 160/78
[2018-02-12] MEDS ORDERED: HYDR-2758 PO (17:26)
--- NOTE | 2018-02-12 17:32 | PHYS DOC ---
Past History Past Medical History: CAD, Cancer, CVA, High Cholesterol, Hypertension, Stroke , Other Past Surgical History: Appendectomy, Cancer Surgery, Other Smoking: Non-smoker Alcohol Use: None Drug Use: None Adult General Chief Complaint Chief Complaint: GROIN PAIN HPI HPI This is a pleasant 77-year-old male presenting the emergency department today with right groin pain. His groin pain has been going on intermittently for years and he has a known hernia in the right groin. He at one point had swelling in his groin that was severe with pain that was sharp shooting nonradiating without alleviating factors. He is brought in today by paramedics for evaluation. He denies chest pain shortness of breath fevers or chills. he denies testicular pain. Review of systems is negative for shortness of breath fevers chills vomiting or diarrhea. All other review of systems is negative unless otherwise noted in history of present illness. ED course: 77-year-old male presenting the emergency department today with right hernia pain. Vitals afebrile with mild hypertension. Initially the patient was a little bit tachycardic which improved over time in the emergency department. On examination he has a right inguinal hernia that is reducible without any evidence of strangulation or incarceration. Blood work and EKG obtained along with ultrasound of the right groin which shows reducible hernia. mild anemia present. Blood work unremarkable otherwise. EKG shows no acute findings. We'll discharge patient home and refer him to general surgeon for an elective hernia repair.The patient has been examined and was not found to have an emergency medical condition. The patient was then discharged home in stable condition to follow up with their primary care physician over the next 2-3 days. They were to return if their symptoms worsened or if they were concerned for any reason. [id number] discharge instructions and return precautions were given. Patient's questions were answered to their satisfaction. Patient is comfortable with plan. Review of Systems Review of Systems SEE ABOVE. Allergies Allergies Allergies Coded Allergies Type Severity Reaction Last Updated Verified No Known Drug Allergies 09/18/17 No Physical Exam Physical Exam SEE ABOVE Constitutional: Well developed, well nourished, no acute distress, non-toxic appearance. [] HENT: Normocephalic, atraumatic, bilateral external ears normal, oropharynx moist, no oral exudates, nose normal. [] Eyes: PERRLA, EOMI, conjunctiva normal, no discharge. [] Neck: Normal range of motion, no tenderness, supple, no stridor. [] Cardiovascular:Heart rate regular rhythm, no murmur [] Lungs & Thorax: Bilateral breath sounds clear to auscultation [] Abdomen: Bowel sounds normal, soft, no tenderness, right inguinal hernia as above. No pulsatile masses. [] Skin: Warm, dry, no erythema, no rash. [] Back: No tenderness, no CVA tenderness. [] Extremities: No tenderness, no cyanosis, no clubbing, ROM intact, no edema. [] Neurologic: Alert and oriented X 3, baseline motor function in extremities, normal sensory function, patient has baseline aphasia and left upper extremity weakness from previous stroke. No acute neurologic changes. Psychologic: Affect normal, judgement normal, mood normal. [] Current Patient Data Vital Signs Vital Signs Date Time Temp Pulse Resp B/P (MAP) Pulse Ox O2 Delivery O2 Flow Rate FiO2 02/12/18 15:33 77 16 153/74 (100) 98 Room Air 02/12/18 13:04 97.8 Lab Results Laboratory Tests Test 02/12/18 13:59 02/12/18 15:33 White Blood Count 6.2 x10^3/uL (4.0-11.0) Red Blood Count 3.33 x10^6/uL (4.30-5.70) L Hemoglobin 10.9 g/dL (13.0-17.5) L Hematocrit 33.1 % (39.0-53.0) L Mean Corpuscular Volume 99 fL (79-100) Mean Corpuscular Hemoglobin 33 pg (25-35) Mean Corpuscular Hemoglobin Concent 33 g/dL (31-37) Red Cell Distribution Width 14.4 % (11.5-14.5) Platelet Count 339 x10^3/uL (140-400) Neutrophils (%) (Auto) 60 % (31-73) Lymphocytes (%) (Auto) 22 % (24-48) L Monocytes (%) (Auto) 14 % (0-9) H Eosinophils (%) (Auto) 3 % (0-3) Basophils (%) (Auto) 1 % (0-3) Neutrophils # (Auto) 3.7 x10^3uL (1.8-7.7) Lymphocytes # (Auto) 1.4 x10^3/uL (1.0-4.8) Monocytes # (Auto) 0.9 x10^3/uL (0.0-1.1) Eosinophils # (Auto) 0.2 x10^3/uL (0.0-0.7) Basophils # (Auto) 0.1 x10^3/uL (0.0-0.2) Sodium Level 144 mmol/L (136-145) Potassium Level 3.7 mmol/L (3.5-5.1) Chloride Level 109 mmol/L (98-107) H Carbon Dioxide Level 30 mmol/L (21-32) Anion Gap 5 (6-14) L Blood Urea Nitrogen 17 mg/dL (8-26) Creatinine 1.0 mg/dL (0.7-1.3) Estimated GFR (Cockcroft-Gault) 72.1 Glucose Level 94 mg/dL (70-99) Lactic Acid Level 2.0 mmol/L (0.4-2.0) Calcium Level 8.1 mg/dL (8.5-10.1) L Total Bilirubin 0.2 mg/dL (0.2-1.0) Direct Bilirubin < 0.1 mg/dL (0.0-0.2) Aspartate Amino Transferase (AST) 17 U/L (15-37) Alanine Aminotransferase (ALT) 24 U/L (16-63) Alkaline Phosphatase 123 U/L (46-116) H Total Protein 5.9 g/dL (6.4-8.2) L Albumin 2.9 g/dL (3.4-5.0) L Lipase 249 U/L (73-393) Urine Collection Type Void Urine Color Yellow Urine Clarity Clear Urine pH 7.0 Urine Specific Weston 1.015 Urine Protein Neg (NEG-TRACE) Urine Glucose (UA) Neg mg/dL (NEG) Urine Ketones (Stick) Neg mg/dL (NEG) Urine Blood Neg (NEG) Urine Nitrite Neg (NEG) Urine Bilirubin Neg (NEG) Urine Urobilinogen Dipstick 0.2 mg/dL (0.2 mg/dL) Urine Leukocyte Esterase Trace (NEG) Urine RBC 1-2 /HPF (0-2) Urine WBC 5-10 /HPF (0-4) Urine Squamous Epithelial Cells Occ /LPF Urine Bacteria 0 /HPF (0-FEW) Urine Hyaline Casts Occ /HPF Urine Mucus Slight /LPF EKG EKG [] Radiology/Procedures Radiology/Procedures [] Course & Med Decision Making Course & Med Decision Making Pertinent Labs and Imaging studies reviewed. (See chart for details) [] Dragon Disclaimer Dragon Disclaimer This electronic medical record was generated, in whole or in part, using a voice recognition dictation system. Departure Departure: Impression: Primary Impression: Hernia Additional Impression: Right groin hernia Disposition: HOME, SELF-CARE Condition: STABLE Referrals: PCP,NO (PCP) Patient Instructions: Inguinal Hernia, Adult Additional Instructions: Thank you for allowing us to participate in your care today. Followup with a general surgeon for elective hernia repair in the next 2 weeks at: Dr. Tellez Dime [phone] [facility], [address] [place] [address] or [phone] Call your Primary Doctor tomorrow and inform them of your visit today. If you do not have a primary care provider you can ask for a list of our primary care providers. Return to the emergency department you have any new or concerning findings. This should be evaluated by the primary care physician and any necessary consulting services for continued management within a few days after discharge. Return to emergency room if you have any new or concerning symptoms including but not limited to fever, chills, nausea, vomiting, intractable pain, any new rashes, chest pain, shortness of air, uncontrolled bleeding, difficulty breathing, and/or vision loss. If at any time, you are having difficulty getting into your primary care doctor or a specialist, return to the emergency department. You may have been prescribed medication or given medication in the emergency department that can change in your level of thinking and ability to operate machinery. These medications include hydrocodone and Ativan. Also, Benadryl has been known to do this as well. Be sure to check with your pharmacist and ask if the medications you've prescribed can affect your level of consciousness. I recommend not operating heavy machinery or driving while on medication such as these. Scripts Hydrocodone Bit/Acetaminophen (HYDROCODONE-APAP 5-325 ) 1 Each Tablet 1 TAB PO PRN Q6HRS PRN for PAIN, #10 TAB 0 Refills Prov: COLLEEN TOWNSEND MD 02/12/18 Problem Qualifiers COLLEEN TOWNSEND MD February 12, 2018 17:32
== END 2018-02-12 17:48 | disposition home or self-care (01) ==
LOC: ER 12:59
DX: K40.90 Unilateral inguinal hernia, without obstruction or gangrene, not specified as recurrent (principal); I25.10 Atherosclerotic heart disease of native coronary artery without angina pectoris; E78.00 Pure hypercholesterolemia, unspecified; I10 Essential (primary) hypertension; Z86.73 Personal history of transient ischemic attack (TIA), and cerebral infarction without residual deficits; Z90.49 Acquired absence of other specified parts of digestive tract
CPT/HCPCS: 36415; 76882; 80048; 80076; 81001; 83605; 83690; 85025; 87086; 93005; 99285-25

== ENCOUNTER 2018-03-28 19:02 | Emergency (ER) | payer MEDICARE ==
[~2018-03-28] VITALS: Ht 172.7 cm; Wt 54.4 kg
[~2018-03-28 19:02] MED LIST changes: +HYDR-2758 PO
--- NOTE | 2018-03-28 20:40 | PHYS DOC ---
Past History Past Medical History: CAD, Cancer, CVA, High Cholesterol, Hypertension, Stroke , Other Past Surgical History: Appendectomy, Cancer Surgery, Other Smoking: Non-smoker Alcohol Use: None Drug Use: None Adult General Chief Complaint Chief Complaint: MECHANICAL FALL HPI HPI 77-year-old male presents after mechanical fall. The patient was walking across parking lot and tripped over a concrete curb. He landed on his left hip and left elbow. He did not hit his head. He was not knocked unconscious. He has been able to walk, but is uncomfortable. He is currently complaining of left hip and femur pain. He has no other complaints. Review of Systems Review of Systems Constitutional: Denies fever or chills [] Eyes: Denies change in visual acuity, redness, or eye pain [] HENT: Denies nasal congestion or sore throat [] Respiratory: Denies cough or shortness of breath [] Cardiovascular: No additional information not addressed in HPI [] GI: Denies abdominal pain, nausea, vomiting, bloody stools or diarrhea [] : Denies dysuria or hematuria [] Musculoskeletal: Left hip and femur pain[] Integument: Denies rash or skin lesions [] Neurologic: Denies headache, focal weakness or sensory changes [] Endocrine: Denies polyuria or polydipsia [] All other systems were reviewed and found to be within normal limits, except as documented in this note. Allergies Allergies Allergies Coded Allergies Type Severity Reaction Last Updated Verified No Known Drug Allergies 09/18/17 No Physical Exam Physical Exam Constitutional: Well developed, well nourished, no acute distress, non-toxic appearance. [] HENT: Normocephalic, atraumatic, bilateral external ears normal, oropharynx moist, no oral exudates, nose normal. [] Eyes: PERRLA, EOMI, conjunctiva normal, no discharge. [] Neck: Normal range of motion, no tenderness, supple, no stridor. [] Cardiovascular:Heart rate regular rhythm, no murmur [] Lungs & Thorax: Bilateral breath sounds clear to auscultation [] Abdomen: Bowel sounds normal, soft, no tenderness, no masses, no pulsatile masses. [] Skin: Warm, dry, no erythema, no rash. [] Back: No tenderness, no CVA tenderness. [] Extremities: Tenderness over anterior left femur[] Neurologic: Alert and oriented X 3, normal motor function, normal sensory function. Patient has speech difficulty at baseline from previous strokes. No acute change. [] Psychologic: Affect normal, judgement normal, mood normal. [] Current Patient Data Vital Signs Vital Signs Date Time Temp Pulse Resp B/P (MAP) Pulse Ox O2 Delivery O2 Flow Rate FiO2 03/28/18 20:25 80 18 151/85 (107) 98 Room Air 03/28/18 19:19 98.1 EKG EKG [] Radiology/Procedures Radiology/Procedures [] Impressions: The patient's pelvis and hip x-rays are negative for acute findings. Course & Med Decision Making Course & Med Decision Making Pertinent Labs and Imaging studies reviewed. (See chart for details) My reading of the patient's x-rays are negative for acute findings. I believe the patient may have strained his quad muscles. There is no obvious bruising. He is stable for discharge at this time. [] Dragon Disclaimer Dragon Disclaimer This electronic medical record was generated, in whole or in part, using a voice recognition dictation system. Departure Departure: Referrals: J LUIS ROD MD (PCP) ELISABET VICTORIA DO Mar 28, 2018 20:40
[2018-03-28 20:57] VITALS: BP 150/78
--- NOTE | 2018-03-29 07:46 | RAD ---
EXAM: Pelvis and left hip, 3 views; left femur, 3 views. HISTORY: Fall. COMPARISON: None. FINDINGS: Pelvis and left hip: A frontal view the pelvis and frontal and frog-leg views of the left hip are obtained. There is no fracture, dislocation or subluxation. There are clips within the right lower quadrant. There are degenerative changes involving the lower lumbar spine. There are vascular calcifications. Left femur: Frontal and lateral views of the left femur are obtained. There is no fracture, dislocation or subluxation. There are vascular calcifications. IMPRESSION: No acute osseous finding. Electronically signed by: Cori Hendrickson MD (03/29/2018 7:43 AM) [facility]
== END 2018-03-28 20:58 | disposition home or self-care (01) ==
LOC: ER 19:02
DX: M25.552 Pain in left hip (principal); M79.652 Pain in left thigh; I25.10 Atherosclerotic heart disease of native coronary artery without angina pectoris; E78.00 Pure hypercholesterolemia, unspecified; I10 Essential (primary) hypertension; Z86.73 Personal history of transient ischemic attack (TIA), and cerebral infarction without residual deficits; W22.8XXA Striking against or struck by other objects, initial encounter; Y93.01 Activity, walking, marching and hiking; Y99.8 Other external cause status; Y92.481 Parking lot as the place of occurrence of the external cause
CPT/HCPCS: 73502; 73552; 99284

== ENCOUNTER → 2018-04-26 | Outpatient (CLI) | payer MEDICARE ==
[2018-03-28 20:57] VITALS: BP 150/78
[2018-04-26 12:06] LABS: GLUCOSE 92 mg/dL (70-99); PHENY 0.8 mcg/mL (10.0-20.0)
== END | disposition home or self-care (01) ==
LOC: LAB 11:15
PROVIDERS: ATTEND Psychiatry & Neurology Neurology
DX: I63.9 Cerebral infarction, unspecified (principal); E55.9 Vitamin D deficiency, unspecified; I11.0 Hypertensive heart disease with heart failure; I50.9 Heart failure, unspecified; E78.5 Hyperlipidemia, unspecified; E78.00 Pure hypercholesterolemia, unspecified; Z85.51 Personal history of malignant neoplasm of bladder; Z87.891 Personal history of nicotine dependence
CPT/HCPCS: 36415; 80185; 82947

== ENCOUNTER 2018-05-21 17:59 | Emergency (ER) | payer MEDICARE ==
[~2018-05-21] VITALS: Ht 172.7 cm; Wt 52.4 kg
[2018-05-21] MEDS ORDERED: IV NORMAL SALINE 1,000ML 1,000 ML IV SCH (18:25)
--- NOTE | 2018-05-21 18:36 | PHYS DOC ---
Past History Past Medical History: Stroke Past Surgical History: Appendectomy, Cancer Surgery, Other Smoking: Non-smoker Alcohol Use: None Drug Use: None Adult General Chief Complaint Chief Complaint: ALTERED MENTAL STATUS HPI HPI Patient is a 77 year old male who presents with complaint of worsening weakness and dysphagia. Patient accompanied by family who state that the patient appears altered from his normal baseline. 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 Patient notes that he has been staggering starting yesterday. Patient also notes that he has had difficulty with words which worsened yesterday and has been persistent throughout the day today. The patient's neurologist is Dr. Mcallister at [facility]. The patient states that he has had headache throughout the day today but denies any other pain symptoms. Denies shortness of breath or chest pain. Due to persistent symptoms the patient was brought to the emergency department for further evaluation. Patient currently on Plavix but not on any other blood thinners. Review of Systems Review of Systems Constitutional: Denies fever or chills [] Eyes: Denies change in visual acuity, redness, or eye pain [] HENT: Denies nasal congestion or sore throat [] Respiratory: Denies cough or shortness of breath [] Cardiovascular: Denies chest pain or edema[] GI: Denies abdominal pain, nausea, vomiting, bloody stools or diarrhea [] : Denies dysuria or hematuria [] Musculoskeletal: Denies back pain or joint pain [] Integument: Denies rash or skin lesions [] Neurologic: Headache, left-sided weakness, dysphasia[] All other systems were reviewed and found to be within normal limits, except as documented in this note. Current Medications Current Medications Current Medications Medications (Trade) Dose Ordered Sig/Marisol Start Time Stop Time Status Last Admin Dose Admin Sodium Chloride 1,000 ml @ 125 mls/hr Q8H 05/21/18 18:25 05/22/18 02:24 UNV Allergies Allergies Allergies Coded Allergies Type Severity Reaction Last Updated Verified No Known Drug Allergies 09/18/17 No Physical Exam Physical Exam Constitutional: Alert, afebrile, no acute distress. [] HENT: Normocephalic, atraumatic, bilateral external ears normal, oropharynx moist, no oral exudates, nose normal. [] Eyes: PERRLA, EOMI, conjunctiva normal, no discharge. [] Neck: Normal range of motion, no tenderness, supple, no stridor. [] Cardiovascular:Heart rate regular rhythm, no murmur [] Lungs & Thorax: Bilateral breath sounds clear to auscultation [] Abdomen: Bowel sounds normal, soft, no tenderness, no masses, no pulsatile masses. [] Skin: Warm, dry, no erythema, no rash. [] Back: No tenderness, no CVA tenderness. [] Extremities: No tenderness, no cyanosis, no clubbing, ROM intact, no edema. [] Neurologic: Alert and oriented X 3, moderately slurred speech,4/5 motor strength in left lower extremity, 5 out of 5 strength in right lower extremity left upper extremity with spastic quadriplegia, right upper extremity 5 out of 5 motor strength. . [] Current Patient Data Vital Signs Vital Signs Date Time Temp Pulse Resp B/P (MAP) Pulse Ox O2 Delivery O2 Flow Rate FiO2 05/21/18 18:02 65 16 98 Room Air EKG EKG EKG #1 interpreted by me at 1841: Heart rate 61, sinus rhythm, leftward axis, deep T-wave inversions in the precordial leads V2 through V5 not present on previous EKG, no acute ST elevations. Rhythm strip interpretation by me at 1910: Heart rate 64, significant QRS widening from previous, no ectopy. EKG #2 at 1914 interpreted by me: Heart rate 60, sinus rhythm, continue deep T- wave inversions in the precordial leads V2 through V5, no acute ST elevations[] Radiology/Procedures Radiology/Procedures One view AP chest x-ray interpreted by me: No infiltrate, no effusions, normal cardiac silhouette [address] [address] IMAGING REPORT Signed PATIENT: VALARIE POLLACK ACCOUNT: [id number] : 1940 LOCATION: ER AGE: 77 SEX: M EXAM STATUS: REG ER ORD. PHYSICIAN: NINOSKA GONZALEZ MD REASON: worsening dysphagia and weakness since yesterday, hx of CVA PROCEDURE: CT HEAD WO CONTRAST PQRS Compliance statement: One or more of the following individualized dose reduction techniques were utilized for this examination: 1. Automated exposure control. 2. Adjustment of the mA and/or kV according to patient size. 3. Use of iterative reconstruction technique. Indication:Worsening dysphagia and weakness since yesterday, hx of CVA TECHNIQUE: CT head without IV contrast COMPARISON:CT head from 03/15/2008 FINDINGS: Small wedge-shaped area of low-attenuation is seen in the left lateral frontal lobe extending to the cortex approximately measuring 3.5 x 2.4 cm. This suggests old infarct. No pathologic extra-axial or intra-axial fluid collection. Old left cerebellar hemisphere infarcts seen. The ventricles and basal cisterns are within normal limits. No acute intracranial bleed. Confluent low-attenuation is seen in the periventricular and deep white matter. Visualized orbits within normal limits. No suspicious calvarial lesions. Visualized paranasal sinuses and mastoid air cells are clear. IMPRESSION: 1. Old infarct in the left cerebellar hemisphere when compared to previous study from 2007. Interval new infarct in the left frontal lobe likely chronic as well. If concern for acute ischemic stroke is high, please consider MRI brain. 2. White matter changes likely secondary to chronic microvascular ischemic disease. Electronically signed by: Bridger Martin DO (05/21/2018 7:25 PM) [facility] DICTATED AND SIGNED BY: BRIDGER MARTIN DO DATE: 05/21/181919 CC: NINOSKA GONZALEZ MD; J LUIS ROD MD ~ [] Course & Med Decision Making Course & Med Decision Making Pertinent Labs and Imaging studies reviewed. (See chart for details) Due to presence of neurologic changes greater than 18 hours, the patient is not a candidate for aggressive stroke intervention which includes tPA were endovascular clot retrieval. This was discussed with family who was in agreement. The patient's troponin is negative, however patient has had significant EKG changes concerning for possible LAD blockage which has not progressed at this time to a STEMI. Patient has been seen by Dr. Oshea of cardiology at [facility] in the past and I contacted him. He recommended that we initiate heparin therapy and recommended patient be transferred to [facility] for further evaluation and care. Patient admitted to Dr. Graham. Patient will be transferred urgently to [facility] by ground ambulance. Dragon Disclaimer Dragon Disclaimer This electronic medical record was generated, in whole or in part, using a voice recognition dictation system. Departure Departure: Impression: Primary Impression: Acute coronary syndrome Additional Impression: History of CVA (cerebrovascular accident) Disposition: 02 XFER SHT-TRM HOSP Condition: GUARDED Referrals: J LUIS ROD MD (PCP) Problem Qualifiers NINOSKA GONZALEZ MD May 21, 2018 18:36
[2018-05-21 18:37] LABS: BASO % 1 % (0-3); EOS # 0.1 x10^3/uL (0.0-0.7); EOS % 2 % (0-3); HEMATOCRIT 40.6 % (39.0-53.0); HEMOGLOBIN 13.6 g/dL (13.0-17.5); LYMPH # 1.9 x10^3/uL (1.0-4.8); LYMPH % 30 % (24-48); MEAN CORPUSCULAR HEMOGLOBIN 34 pg (25-35); MEAN CORPUSCULAR HGB CONC 33 g/dL (31-37); MEAN CORPUSCULAR VOLUME 101 fL (79-100); MONO # 0.9 x10^3/uL (0.0-1.1); MONO % 15 % (0-9); NEUT # 3.3 x10^3uL (1.8-7.7); NEUT % 53 % (31-73); PLATELET COUNT 348 x10^3/uL (140-400); RED BLOOD COUNT 4.03 x10^6/uL (4.30-5.70); RED CELL DISTRIBUTION WIDTH 14.8 % (11.5-14.5); WHITE BLOOD COUNT 6.2 x10^3/uL (4.0-11.0)
--- NOTE | 2018-05-21 18:44 | EKG ---
[address] [address] Test Date: 2018-05-21 Test Time: 18:41:40 Pat Name: VALARIE POLLACK Department: Room: Gender: M [employer] Mark[employer] Clerk: : 1940 Requested By: NINOSKA GONZALEZ Order Number: [id number] Reading MD: Rich Alfred MD Measurements Intervals [place] Rate: 61 P: 56 CO: 188 QRS: -5 QRSD: 108 T: -20 QT: 460 QTc: 465 Interpretive Statements SINUS RHYTHM LEFTWARD AXIS LVH WITH REPOLARIZATION ABNORMALITY QRS(T) CONTOUR ABNORMALITY CONSIDER ANTEROSEPTAL MYOCARDIAL DAMAGE ABNORMAL ECG Electronically Signed On 05-22-2018 7:34:47 CDT by Rich Alfred MD
[2018-05-21 19:04] LABS: ALBUMIN 3.1 g/dL (3.4-5.0); CALCIUM 8.3 mg/dL (8.5-10.1); CREATININE 1.1 mg/dL (0.7-1.3); GFR 64.6; MAGNESIUM 2.1 mg/dL (1.8-2.4); POTASSIUM 4.1 mmol/L (3.5-5.1); TOTAL BILIRUBIN 0.2 mg/dL (0.2-1.0); TOTAL PROTEIN 6.3 g/dL (6.4-8.2)
--- NOTE | 2018-05-21 19:28 | RAD ---
PQRS Compliance statement: One or more of the following individualized dose reduction techniques were utilized for this examination: 1. Automated exposure control. 2. Adjustment of the mA and/or kV according to patient size. 3. Use of iterative reconstruction technique. Indication:Worsening dysphagia and weakness since yesterday, hx of CVA TECHNIQUE: CT head without IV contrast COMPARISON:CT head from 03/15/2008 FINDINGS: Small wedge-shaped area of low-attenuation is seen in the left lateral frontal lobe extending to the cortex approximately measuring 3.5 x 2.4 cm. This suggests old infarct. No pathologic extra-axial or intra-axial fluid collection. Old left cerebellar hemisphere infarcts seen. The ventricles and basal cisterns are within normal limits. No acute intracranial bleed. Confluent low-attenuation is seen in the periventricular and deep white matter. Visualized orbits within normal limits. No suspicious calvarial lesions. Visualized paranasal sinuses and mastoid air cells are clear. IMPRESSION: 1. Old infarct in the left cerebellar hemisphere when compared to previous study from 2007. Interval new infarct in the left frontal lobe likely chronic as well. If concern for acute ischemic stroke is high, please consider MRI brain. 2. White matter changes likely secondary to chronic microvascular ischemic disease. Electronically signed by: Bridger Martin DO (05/21/2018 7:25 PM) [employer]
[2018-05-21] MEDS ORDERED: HEPARIN for IV BOLUS 10,000 UNIT/10 ML VIAL. ONE (19:31)
[2018-05-21] MEDS ORDERED: HEPARIN 25,000UTS/500ML PREMIX 500 ML IV ONE (19:31)
[2018-05-21] MEDS ORDERED: HEPARIN for IV BOLUS 10,000 UNIT/10 ML VIAL. IV ONE (19:45)
[2018-05-21] MEDS ORDERED: HEPARIN 25,000UTS/500ML PREMIX 500 ML IV PRN (19:45)
--- NOTE | 2018-05-21 19:58 | RAD ---
Indication:Weakness TECHNIQUE:Portable AP chest X-ray COMPARISON:09/18/2017 FINDINGS: Heart is normal in size. Lungs are hyperinflated with bibasilar interstitial and patchy. No pneumothorax or pleural effusion. Visualized bony thorax is within normal limits. Calcified granuloma in the right lung apex. IMPRESSION: Findings of COPD with mild bibasilar scarring or subsegmental atelectasis. Electronically signed by: Bridger Martin DO (05/21/2018 7:55 PM) [facility]
[2018-05-21 21:03] VITALS: BP 141/74
== END 2018-05-21 21:10 | disposition short-term general hospital (02) ==
LOC: ER 17:59
DX: I24.9 Acute ischemic heart disease, unspecified (principal); Z86.73 Personal history of transient ischemic attack (TIA), and cerebral infarction without residual deficits
CPT/HCPCS: 36415; 70450; 71045; 80053; 83735; 84484; 85025; 85610; 85730; 93005; 96365; 96375; 99285; J1644; J7030

== ENCOUNTER 2018-08-09 10:24 | Inpatient (IN) | payer MEDICARE ==
[~2018-08-09] VITALS: Ht 172.7 cm; Wt 56.7 kg
[~2018-08-09 10:24] MED LIST changes: -LOSA50TA6 PO; +LOSA50TA7 PO
--- NOTE | 2018-08-09 10:37 | RAD ---
CT brain without contrast. HISTORY: Numbness, history of CVA, code stroke CT scan of brain was done without contrast. There is an old left cerebellar CVA with encephalomalacia. There is no intracranial hemorrhage. There is encephalomalacia from an old left frontal CVA. There is no mass or shift of the midline. An acute CVA is not identified. Sinuses are clear. IMPRESSION: 1. Old CVAs. 2. No intracranial hemorrhage. 3. An acute CVA is not identified at this time, MRI could be of benefit. Emergency room physician was called and notified the findings at 10:33 AM FOR INTERNAL CODING PURPOSES Critical result: RESULT CODE: (C) PQRS Compliance Statement: One or more of the following individualized dose reduction techniques were utilized for this examination: 1. Automated exposure control 2. Adjustment of the mA and/or kV according to patient size 3. Use of iterative reconstruction technique Electronically signed by: Jayme Haynes MD (08/09/2018 10:35 AM) [facility]
--- NOTE | 2018-08-09 10:43 | PHYS DOC ---
Past History Past Medical History: Stroke Past Surgical History: Appendectomy, Cancer Surgery, Other Smoking: Non-smoker Alcohol Use: None Drug Use: None Adult General Chief Complaint Chief Complaint: NEURO SYMPTOMS/DEFICITS [facility] HPI 78-year-old male presents via EMS for concern of stroke. The patient woke up around 8 AM and was at his baseline. He has some motor weakness and dysarthria from a previous stroke. At 9 AM his states that his speech was much more garbled and he had left-sided facial droop. Based on this, the patient's last known time of being as well is 0800. When EMS arrived they also noted jumbled speech and a left-sided facial droop. The patient was not able to completely follow directions. He was able to move his extremities but was not able to perform the drift test. He was able to grab EMS his fingers and pull back and forth. He was able to lift both legs. When asked the patient has a headache he states no. I ask if he feels no different now than he did when he woke up, he states no and shakes his head. He denies fever or chills. Review of Systems Review of Systems Constitutional: Denies fever or chills [] Eyes: Denies change in visual acuity, redness, or eye pain [] HENT: Denies nasal congestion or sore throat [] Respiratory: Denies cough or shortness of breath [] Cardiovascular: No additional information not addressed in HPI [] GI: Denies abdominal pain, nausea, vomiting, bloody stools or diarrhea [] : Denies dysuria or hematuria [] Musculoskeletal: Denies back pain or joint pain [] Integument: Denies rash or skin lesions [] Neurologic: Denies headache. Slurred speech, facial droop[] Endocrine: Denies polyuria or polydipsia [] All other systems were reviewed and found to be within normal limits, except as documented in this note. Allergies Allergies Allergies Coded Allergies Type Severity Reaction Last Updated Verified No Known Drug Allergies 09/18/17 No Physical Exam Physical Exam Constitutional: Well developed, well nourished, no acute distress, non-toxic appearance. [] HENT: Normocephalic, atraumatic, bilateral external ears normal, oropharynx moist, no oral exudates, nose normal. Slight facial droop of the left side mouth only.[] Eyes: PERRLA, EOMI, conjunctiva normal, no discharge. [] Neck: Normal range of motion, no tenderness, supple, no stridor. [] Cardiovascular:Heart rate regular systolic murmur [] Lungs & Thorax: Bilateral breath sounds clear to auscultation [] Abdomen: Bowel sounds normal, soft, no tenderness, no masses, no pulsatile masses. [] Skin: Warm, dry, no erythema, no rash. [] Back: No tenderness, no CVA tenderness. [] Extremities: No tenderness, no cyanosis, no clubbing, ROM intact, no edema. [] Neurologic: Alert and oriented. His speech is understandable in one and 2 word answers. He is able to answer simple questions. He is moving all extremities. [facility] stroke scale below for further details. [] Psychologic: Affect normal, judgement normal, mood normal. [] EKG EKG [] Radiology/Procedures Radiology/Procedures [] Course & Med Decision Making Course & Med Decision Making Pertinent Labs and Imaging studies reviewed. (See chart for details) During my exam, the patient is alert and oriented. He is able to move all extremities. His drift tests are all negative. He has a slight droop in the left side of his mouth. His smile is almost symmetrical. His upper face is symmetrical. He does not seem to have any coordination difficulty with testing. He understands my directions and performs them well. His NIH stroke scale is 4. Based on the history given, the patient appears to be improving. His confirms that he is doing much better at this time. I discussed the case with Dr. John mena and he has agreed to admit the patient. [] Dragon Disclaimer Dragon Disclaimer This electronic medical record was generated, in whole or in part, using a voice recognition dictation system. NIH Stroke Scale: NIH Stroke Scale Response (Comments) Value Level of Consciousness: 0 Alert/Responsive 0 LOC Questions: 0 Answers both correctly 0 LOC Commands: 0 Performs both tasks 0 Best Gaze: 0 Normal 0 Visual: 1 Partial hemianopia 1 Facial Palsy: 1 Minor paralysis 1 Motor - Left Arm 0 No drift 0 Motor - Right Arm 0 No drift 0 Motor - Left Leg 0 No drift 0 Motor: Right Leg 0 No drift 0 Limb Ataxia: 0 Absent 0 Sensory: 0 No loss 0 Best Language: 1 Mild to mod aphasia 1 Dysathria: 1 Mild to moderate 1 Extinction and Inattention: 0 Normal 0 Total 4 Departure Departure: Referrals: J LUIS ROD MD (PCP) ELISABET VICTORIA DO Aug 09, 2018 10:43
--- NOTE | 2018-08-09 10:44 | RAD ---
AP chest. HISTORY: Numbness to right side, history of strokes AP view was taken of the chest. Lungs are free of confluent infiltrates. Heart is normal in size. There is a hiatus hernia behind the heart. There is no pleural effusion. IMPRESSION: 1. Hiatus hernia. 2. No acute infiltrates. Electronically signed by: Jayme Haynes MD (08/09/2018 10:41 AM) [facility]
[2018-08-09 11:13] LABS: HEMATOCRIT 39.4 % (39.0-53.0); RED BLOOD COUNT 3.98 x10^6/uL (4.30-5.70); RED CELL DISTRIBUTION WIDTH 13.5 % (11.5-14.5); WHITE BLOOD COUNT 6.6 x10^3/uL (4.0-11.0)
[2018-08-09 11:17] LABS: CALCIUM 8.5 mg/dL (8.5-10.1); CREATININE 1.1 mg/dL (0.7-1.3); GFR 64.4
[2018-08-09 11:18] LABS: POTASSIUM 4.8 mmol/L (3.5-5.1)
[2018-08-09] MEDS: ONDANSETRON PF 4 MG/2 ML VIAL. IV PRN ×2 (12:20→12:21)
[2018-08-09] MEDS ORDERED: METO25TA4 PO (12:59)
[2018-08-09] MEDS ORDERED: LOSA25TA5 PO (12:59)
[2018-08-09 13:20] VITALS: BP 128/63
--- NOTE | 2018-08-09 18:49 | NUR ---
Pt admitted to [address] [place] [address] for TIA/AMS. Pt arrived on unit via gurney accompanied by EMS. Pt vitals, head to toe assessed. Pt resting comfortably with family at bedside.
[2018-08-09] MEDS ORDERED: HYDROcodone/APAP 5/325MG 1 TAB TABLET PO PRN (19:30)
[2018-08-09 19:43] VITALS: BP 96/52
[2018-08-09 20:49] LABS: PHENY 24.9 mcg/mL (10.0-20.0)
[2018-08-09] MEDS ORDERED: PHENYTOIN SODIUM EXTENDED 100 MG CAPSULE PO SCH (21:00)
[2018-08-09] MEDS: MULTIVITAMIN I-VITE TABLET. PO SCH (21:00)
[2018-08-09] MEDS ORDERED: TAMSULOSIN 0.4 MG CAP.ER.24H. PO SCH (21:00)
[2018-08-09] MEDS ORDERED: ATORVASTATIN CALCIUM 20 MG TABLET PO SCH (21:00)
[2018-08-09] MEDS: FAMOTIDINE 20 MG TABLET PO SCH (21:01)
[2018-08-09 23:07] VITALS: BP 149/71
[2018-08-09 23:26] LABS: BILIRUBIN,URINE NEG (NEG); CLARITY,URINE CLEAR; COLOR,URINE YELLOW; GLUCOSE,URINE NEG (NEG)
[2018-08-09 23:27] LABS: BACTERIA,URINE 0 /HPF (0-FEW); HYALINE CASTS, URINE FEW /HPF; NITRITE,URINE NEG (NEG); RBC,URINE OCC /HPF (0-2); SQUAMOUS EPITHELIAL CELL,UR FEW /LPF; UROBILINOGEN,URINE 0.2 mg/dL (0.2 mg/dL); WBC,URINE OCC /HPF (0-4)
[2018-08-10 03:50] VITALS: BP 111/59
--- NOTE | 2018-08-10 04:19 | PDOC1 ---
History and Physical Date of Admission: Date of Admission: 08/10/18 Chief Complaint: Chief Complain: CVA Source: Source: Caregiver, Chart review, Patient HPI: HPI: 78-year-old male presented to [facility] ED via EMS for concern of stroke. The patient woke up around 8 AM yesterday and spouse reported patient was at his baseline. He has some prior motor weakness and dysarthria from a previous stroke. At 9 AM his states that his speech was much more garbled and he had left-sided facial droop. Based on this, the patient's last known time of being as well was 0800. When EMS arrived they also noted slurred speech and a left-sided facial droop. The patient was not able to completely follow directions. He was reportedly able to move his extremities but was not able to perform the drift test. He was able to lift both legs. When asked if he had a headache he stated no. ED physician asked if he felt different in ED than he did when he woke up, he stated no and shook his head. He denied fever or chills. ED exam, the patient was alert and oriented, able to move all extremities. His drift tests were all negative. He had a slight droop in the left side of his mouth. His smile was almost symmetrical. His upper face symmetrical. He reportedly did not seem to have any coordination difficulty with testing. He understood directions and performed them well. His NIH stroke scale 4. Based on the history given, the patient appeared to be improved, his spouse reportedly agreed. NIH Stroke Scale: NIH Stroke Scale Response (Comments) Value Level of Consciousness: 0 Alert/Responsive 0 LOC Questions: 0 Answers both correctly 0 LOC Commands: 0 Performs both tasks 0 Best Gaze: 0 Normal 0 Visual: 1 Partial hemianopia 1 Facial Palsy: 1 Minor paralysis 1 Motor - Left Arm 0 No drift 0 Motor - Right Arm 0 No drift 0 Motor - Left Leg 0 No drift 0 Motor: Right Leg 0 No drift 0 Limb Ataxia: 0 Absent 0 Sensory: 0 No loss 0 Best Language: 1 Mild to mod aphasia 1 Dysathria: 1 Mild to moderate 1 Extinction and Inattention: 0 Normal [address] Head w/o: IMPRESSION: 1. Old CVAs. 2. No intracranial hemorrhage. 3. An acute CVA is not identified at this time, MRI could be of benefit. CXR reportedly unremarkable, labs reportedly unremarkable. His RN reports that there were no adverse issues overnight. She states that he was able to ambulate to and from the bathroom with her standing by. He's had no complaints and no new or changing neurologic symptoms no chest pain or dyspnea. I find the patient sleeping this morning rouses easily to verbal stimuli. There is persistent slight left-sided facial droop he is able to move all of his extremities. He has trouble with open-ended questions but is able to easily give one-word answers appropriately. He would like to go home but agrees to wait until evaluated by neurology. 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 Past Surgical History: PSH: appendectomy, bladder cancer resection x 3, herniorrhaphy x 2 Family History: Family History: Other Social History: Smoke: Quit (8 years) Alcohol: none Drugs: None Allergies: Allergies: Coded Allergies: No Known Drug Allergies (Unverified , 09/18/17) Current Medications: Current Medications: Current Medications Medications (Trade) Dose Ordered Sig/Marisol Start Time Stop Time Status Last Admin Dose Admin Acetaminophen/ Hydrocodone Bitart (Lortab 5/325) 1 tab PRN Q6HRS PRN 08/09/18 19:30 Atorvastatin Calcium (Lipitor) 40 mg QHS 08/09/18 21:00 08/09/18 21:01 40 MG Famotidine (Pepcid) 20 mg BID 08/09/18 21:00 08/09/18 21:01 20 MG Ferrous Sulfate (Feosol) 325 mg DAILY 08/10/18 09:00 Fish Oil (Fish Oil) 2,000 mg DAILY 08/10/18 09:00 Losartan Potassium (Cozaar) 50 mg DAILY 08/10/18 09:00 UNV Metoprolol Tartrate (Lopressor) 25 mg DAILY 08/10/18 09:00 Multivitamins/ Minerals (I-Jm) 1 tab BID 08/09/18 21:00 08/09/18 21:00 1 TAB Ondansetron HCl (Zofran) 4 mg PRN Q4HRS PRN 08/09/18 11:45 08/10/18 11:44 08/09/18 12:21 4 MG Phenytoin Sodium (Dilantin) 400 mg QHS 08/09/18 21:00 08/09/18 21:01 400 MG Tamsulosin HCl (Flomax) 0.4 mg QHS 08/09/18 21:00 08/09/18 21:00 0.4 MG Vitamin B Complex 1 cap DAILY 08/10/18 09:00 ROS: ROS: Constitutional: No fever or chills Eyes: No eye pain or blurred vision Skin: No rash or itching Cardiovascular: No chest pain, syncope, palpitations, dyspnea on exertion, or edema Respiratory: No cough or difficulty breathing Gastrointestinal: No nausea, vomiting, or abdominal pain Endocrine: No heat or cold intolerance Genitourinary: No incontinence or hematuria Musculoskeletal: No joint pain or swelling Lymphatics: No enlarged lymph nodes Psychiatric: No anxiety or depression PE: PE: Gen.: Alert, pleasant, no apparent distress HEENT: Normocephalic atraumatic, slight left-sided droop involving the mouth no scleral icterus, oral mucosa pink and moist Neck: Supple, no lymphadenopathy, nontender Cardiovascular: Normal S1 and S2 no murmurs Pulmonary: Lungs are clear bilaterally with good air movement no respiratory distress Abdomen: Soft nontender non-distended, bowel sounds present no masses Extremities: No clubbing, cyanosis or edema Neuro: Alert and appears to be oriented 3, Skin: Warm, dry Vitals: Vitals: Vital Signs Date Time Temp Pulse Resp B/P (MAP) Pulse Ox O2 Delivery O2 Flow Rate FiO2 08/10/18 03:50 98.2 70 20 111/59 (76) 93 Room Air Labs: Labs: Laboratory Tests Test 08/09/18 10:53 08/09/18 14:15 08/09/18 20:15 08/09/18 23:00 White Blood Count 6.6 x10^3/uL (4.0-11.0) Red Blood Count 3.98 x10^6/uL (4.30-5.70) Hemoglobin 13.0 g/dL (13.0-17.5) Hematocrit 39.4 % (39.0-53.0) Mean Corpuscular Volume 99 fL (79-100) Mean Corpuscular Hemoglobin 33 pg (25-35) Mean Corpuscular Hemoglobin Concent 33 g/dL (31-37) Red Cell Distribution Width 13.5 % (11.5-14.5) Platelet Count 345 x10^3/uL (140-400) Sodium Level 138 mmol/L (136-145) Potassium Level 4.8 mmol/L (3.5-5.1) Chloride Level 103 mmol/L (98-107) Carbon Dioxide Level 28 mmol/L (21-32) Anion Gap 7 (6-14) Blood Urea Nitrogen 26 mg/dL (8-26) Creatinine 1.1 mg/dL (0.7-1.3) Estimated GFR (Cockcroft-Gault) 64.4 Glucose Level 92 mg/dL (70-99) Calcium Level 8.5 mg/dL (8.5-10.1) Prothrombin Time 10.3 SEC (9.4-11.4) Prothromb Time International Ratio 1.0 (0.9-1.1) Activated Partial Thromboplast Time 25 SEC (23-33) Phenytoin (Dilantin) Level 24.9 mcg/mL (10.0-20.0) Phenytoin Last Dose Date 08-09-18 Phenytoin Last Dose Time 0700 Urine Collection Type Unknown Urine Color Yellow Urine Clarity Clear Urine pH 6.5 Urine Specific [place] 1.020 Urine Protein Neg (NEG-TRACE) Urine Glucose (UA) Neg mg/dL (NEG) Urine Ketones (Stick) Trace mg/dL (NEG) Urine Blood Neg (NEG) Urine Nitrite Neg (NEG) Urine Bilirubin Neg (NEG) Urine Urobilinogen Dipstick 0.2 mg/dL (0.2 mg/dL) Urine Leukocyte Esterase Neg (NEG) Urine RBC Occ /HPF (0-2) Urine WBC Occ /HPF (0-4) Urine Squamous Epithelial Cells Few /LPF Urine Bacteria 0 /HPF (0-FEW) Urine Hyaline Casts Few /HPF Urine Mucus Slight /LPF VTE Prophylaxis: VTE Prophylaxis Devices: No (patient is ambulatory) VTE Pharmacological Prophylaxi: No Assessment/Plan: A/P: TIA with improving symptoms if not already at baseline Morning labs and PT/OT, neurology evaluation pending We will continue home medications except for aspirin and Plavix. No bleeding was noted on CT but will hold these meds for neurology review. FELIX GALLEGO DO Aug 10, 2018 04:19
[2018-08-10 05:00] VITALS: BP 123/64
[2018-08-10 07:05] LABS: BASO # 0.1 x10^3/uL (0.0-0.2); BASO % 1 % (0-3); EOS # 0.2 x10^3/uL (0.0-0.7); EOS % 3 % (0-3); HEMOGLOBIN 11.1 g/dL (13.0-17.5); LYMPH # 1.4 x10^3/uL (1.0-4.8); LYMPH % 29 % (24-48); MEAN CORPUSCULAR HEMOGLOBIN 33 pg (25-35); MEAN CORPUSCULAR HGB CONC 34 g/dL (31-37); MEAN CORPUSCULAR VOLUME 98 fL (79-100); MONO # 0.6 x10^3/uL (0.0-1.1); MONO % 13 % (0-9); NEUT # 2.6 x10^3uL (1.8-7.7); NEUT % 54 % (31-73); PLATELET COUNT 307 x10^3/uL (140-400); RED BLOOD COUNT 3.37 x10^6/uL (4.30-5.70); RED CELL DISTRIBUTION WIDTH 13.3 % (11.5-14.5); WHITE BLOOD COUNT 4.8 x10^3/uL (4.0-11.0)
[2018-08-10 07:20] LABS: ALBUMIN 2.6 g/dL (3.4-5.0); ALBUMIN/GLOBULIN RATIO 0.9 (1.0-1.7); CALCIUM 8.1 mg/dL (8.5-10.1); CREATININE 1.2 mg/dL (0.7-1.3); GFR 58.3; POTASSIUM 4.5 mmol/L (3.5-5.1); TOTAL BILIRUBIN 0.2 mg/dL (0.2-1.0); TOTAL PROTEIN 5.6 g/dL (6.4-8.2)
[2018-08-10] MEDS: FERROUS SULFATE 325 MG TABLET. PO SCH ×2 (09:00→09:19)
[2018-08-10] MEDS ORDERED: METOPROLOL TART IMMED RELEASE 25 MG TABLET PO SCH (09:00)
[2018-08-10] MEDS: FAMOTIDINE 20 MG TABLET PO SCH ×2 (09:00→09:18)
[2018-08-10] MEDS ORDERED: LOSARTAN 50 MG TABLET. PO SCH (09:00)
[2018-08-10] MEDS ORDERED: VITAMIN B COMPLEX CAPSULE. PO SCH (09:00)
[2018-08-10] MEDS ORDERED: LOSARTAN 25 MG TABLET. PO SCH (09:00)
[2018-08-10] MEDS ORDERED: OMEGA-3 FATTY ACIDS/FISH OIL 1,000 MG CAPSULE. PO SCH (09:00)
[2018-08-10] MEDS: MULTIVITAMIN I-VITE TABLET. PO SCH (09:18)
[2018-08-10 11:13] VITALS: BP 131/63
[2018-08-10] MEDS ORDERED: LEVO100T PO (12:42)
--- NOTE | 2018-08-10 14:14 | CONS ---
DATE OF CONSULTATION: 08/10/2018 REFERRING PHYSICIAN: Dr. Campbell. REASON FOR CONSULTATION: Rule out stroke versus TIA. HISTORY OF PRESENT ILLNESS: This is an 78-year-old right-handed male who was admitted through Emergency Room yesterday morning after he presented with sudden onset of some left facial drooping, increased slurred speech and discoordination. The patient is known to me when he had a stroke 8 years ago resulted in a right-sided hemiparesis and language dysfunction. His hemiparesis has improved, but he continued to have language dysfunction and some type of aphasia. According to his daughter, Fer she told me his speech has been the same at baseline. The patient denies any headaches, visual disturbances, nausea, vomiting, chest pain, shortness of breath or palpitation, recent falls or head injuries. He denies any chills or fever. Initial nonenhanced head CT scan revealed an old encephalomalacia confined to the left frontal lobe, otherwise no acute intracranial process. PAST MEDICAL HISTORY: Significant for hypertension, hyperlipidemia, old stroke as described above. Left distal upper extremity weakness with contractions of the left hand at the wrist secondary to previous C7 fracture many years ago, macular degeneration, anemia, vitamin D deficiency, dementia, hypothyroidism and seizure disorder, likely secondary to previous stroke, benign prostate hypertrophy. PAST SURGICAL HISTORY: Significant for appendectomy, hernia repair, cervical spine surgery. Coronary artery disease status post coronary artery stenting. Aortic stenosis. SOCIAL HISTORY: The patient denies smoking, alcohol drinking, or illicit drug use. CURRENT HOME MEDICATIONS: Lipitor 40 mg at bedtime, levothyroxine 100 mcg daily, vitamin B complex, fish oil, metoprolol 25 mg daily, losartan 25 mg daily, ferrous sulfate 325 mg, aspirin 325 mg daily, Plavix 75 mg p.o. daily, Dilantin 400 mg at bedtime, Pepcid 20 mg b.i.d., tamsulosin 0.4 mg at bedtime, hydrocodone 5/325 q. 6 hours p.r.n. ALLERGIES: No known drug allergies. REVIEW OF SYSTEMS: A 10-point review of system was performed and consistent with an old language dysfunction with slurred speech along with contractions of the left hand secondary to a C6-C7 fracture. Otherwise, as mentioned above in history of present illness. PHYSICAL EXAMINATION: GENERAL: Well-developed, well-nourished male, not in acute distress. He weighs 125 pounds. VITAL SIGNS: Blood pressure 131/66, respiratory rate 18, pulse is 75 and regular, temperature 98.8, oxygen saturation is 97% on room air. HEENT: Normocephalic, atraumatic, otherwise unremarkable. NECK: Supple. Negative for carotid bruit, lymphadenopathy or thyromegaly. LUNGS: Clear to A and P. CARDIOVASCULAR: Regular rhythm, normal S1, S2. There is a 2/6 systolic murmur. ABDOMEN: Soft. Bowel sounds positive. EXTREMITIES: Negative for cyanosis, clubbing, or pitting edema. NEUROLOGICAL EXAM: Mental Status: The patient is alert and oriented to himself and place. His speech is dysarthric and he has difficulty finding some words and some difficulty with repetition. Judgment abstract and thinking is fair. The patient denies hallucination or delusion. CRANIAL NERVES: Visual cary appear to be consistent with the left lower quadrantanopia. There is no nystagmus. There is no nystagmus. There is no nystagmus. There is no facial motor or sensory deficit. Hearing is intact bilaterally. The palate is elevated symmetrically. Sternocleidomastoid muscles are powerful bilaterally. The patient shrugs his shoulders symmetrically and protrudes his tongue in the midline without fasciculation or atrophy. MOTOR: No focal muscle bulk was seen. The tone is normal. The strength is 4/5 throughout. The patient has contraction of the left hand secondary to previous C-spine fracture. Sensory examination revealed diminished pinprick and light touch senses in patchy distributions in both upper and lower extremities. Deep tendon reflexes are symmetric and hypoactive without pathology responses. Gait: The patient uses a walker for ambulation. LABORATORY DATA: CBC revealed white blood cells of 4.8 thousand, hemoglobin 11.1, hematocrit 33 and platelet count 307,000. Chemistry: Sodium 140, potassium 4.5, chloride 105, CO2 28, BUN 29, creatinine 1.2, glucose 81, calcium is 8.1, alkaline phosphatase is elevated at 26 with a normal lipid profile and high HDL and high TSH at 4.1. DIAGNOSTIC DATA: Nonenhanced head CT scan consistent with old left frontal encephalomalacia, otherwise no acute intracranial process. Chest x-ray revealed a hiatal hernia without acute cardiopulmonary process. Urinalysis is negative for urinary tract infections. Phenytoin level was elevated at 24.9. IMPRESSION: 1. History of discoordination with exacerbation of slurred speech on the day of admission, probably multifactorial; however, Phenytoin intoxications may have some contribution to the current symptoms. According to his language dysfunctions, based on his daughter information the language dysfunction has been stable since he had a stroke. The patient has a complete workup at [facility] a few weeks ago and probably including a carotid Doppler study along with echocardiogram. 2. Multiple medical problems include coronary artery disease, status post stenting procedure, hypothyroidism, hyperlipidemia, hypertension, GERD and seizure disorder. RECOMMENDATIONS: 1. We will continue with current home medications. 2. Continue with current care initiated by Dr. Campbell. 3. Physical therapy evaluation. 4. To obtain a recent carotid Doppler study and possible brain MRI from [facility]. M Alexa BERRIOS MD DR: PEDRO/kamaljit JOB#: [id number] / [id number]
--- NOTE | 2018-08-10 15:32 | NUR ---
Pt discharged home for self care. Pt left the unit in stable condition via wheelchair accompanied by this nurse and spouse. Pt given verbal and written discharge, follow up and medication instructions. Verbal understanding received from pt and pt spouse by this nurse.
[2018-08-11] MEDS ORDERED: LEVOTHYROXINE 100 MCG TABLET PO SCH (06:00)
== END 2018-08-10 13:00 | disposition home or self-care (01) | DRG 69 ==
LOC: ER 10:24 → 1 SOUTH 11:45
PROVIDERS: ADMIT Neuromusculoskeletal Medicine & OMM; ATTEND Neuromusculoskeletal Medicine & OMM
DX: G45.9 Transient cerebral ischemic attack, unspecified (principal); R47.01 Aphasia; E03.9 Hypothyroidism, unspecified; E78.5 Hyperlipidemia, unspecified; F03.90 Unspecified dementia, unspecified severity, without behavioral disturbance, psychotic disturbance, mood disturbance, and anxiety; G40.909 Epilepsy, unspecified, not intractable, without status epilepticus; I10 Essential (primary) hypertension; I25.10 Atherosclerotic heart disease of native coronary artery without angina pectoris; J44.9 Chronic obstructive pulmonary disease, unspecified; K21.9 Gastro-esophageal reflux disease without esophagitis; N40.0 Benign prostatic hyperplasia without lower urinary tract symptoms; Z79.02 Long term (current) use of antithrombotics/antiplatelets; Z79.82 Long term (current) use of aspirin; Z79.899 Other long term (current) drug therapy; Z85.51 Personal history of malignant neoplasm of bladder; Z90.49 Acquired absence of other specified parts of digestive tract; Z95.5 Presence of coronary angioplasty implant and graft
CPT/HCPCS: 36415; 70450; 71045; 80048; 80053; 80061; 80185; 81001; 84443; 85025; 85027; 85610; 85730; 96374; J2405; 99291-25

== ENCOUNTER 2018-12-30 10:52 | Inpatient (IN) | payer MEDICARE ==
[~2018-12-30] VITALS: Ht 172.7 cm; Wt 52.3 kg
[~2018-12-30 10:52] MED LIST changes: +HYDR-2155 PO; -HYDR-2758 PO; +LEVO100T PO; +LOSA25TA11 PO; -LOSA50TA7 PO; +LOSA50TA86 PO; +METO25TA4 PO
[2018-12-30 11:15] LABS: BASO # 0.1 x10^3/uL (0.0-0.2); BASO % 1 % (0-3); EOS # 0.1 x10^3/uL (0.0-0.7); EOS % 1 % (0-3); HEMOGLOBIN 11.1 g/dL (13.0-17.5); LYMPH # 1.1 x10^3/uL (1.0-4.8); LYMPH % 16 % (24-48); MEAN CORPUSCULAR HEMOGLOBIN 32 pg (25-35); MEAN CORPUSCULAR HGB CONC 33 g/dL (31-37); MEAN CORPUSCULAR VOLUME 98 fL (79-100); MONO # 0.7 x10^3/uL (0.0-1.1); MONO % 10 % (0-9); NEUT # 4.7 x10^3uL (1.8-7.7); NEUT % 72 % (31-73); PLATELET COUNT 350 x10^3/uL (140-400); RED BLOOD COUNT 3.46 x10^6/uL (4.30-5.70); RED CELL DISTRIBUTION WIDTH 15.1 % (11.5-14.5); WHITE BLOOD COUNT 6.5 x10^3/uL (4.0-11.0)
--- NOTE | 2018-12-30 11:19 | PHYS DOC ---
Past History Past Medical History: Hypertension, Stroke Past Surgical History: Appendectomy, Cancer Surgery, Other Smoking: Non-smoker Alcohol Use: None Drug Use: None Adult General Chief Complaint Chief Complaint: SHORTNESS OF BREATH [facility] HPI 78-year-old male presents with shortness of breath. The patient states that he has felt more short of breath for the last 5 days. He has had a mild intermittent cough. He denies fever. He denies nausea, vomiting, diarrhea, chest pain. Review of Systems Review of Systems Constitutional: Denies fever or chills [] Eyes: Denies change in visual acuity, redness, or eye pain [] HENT: Denies nasal congestion or sore throat [] Respiratory: Cough and shortness of breath [] Cardiovascular: No additional information not addressed in HPI [] GI: Denies abdominal pain, nausea, vomiting, bloody stools or diarrhea [] : Denies dysuria or hematuria [] Musculoskeletal: Denies back pain or joint pain [] Integument: Denies rash or skin lesions [] Neurologic: Denies headache, focal weakness or sensory changes [] Endocrine: Denies polyuria or polydipsia [] All other systems were reviewed and found to be within normal limits, except as documented in this note. Allergies Allergies Allergies Coded Allergies Type Severity Reaction Last Updated Verified No Known Drug Allergies 09/18/17 No Physical Exam Physical Exam Constitutional: Well developed, well nourished, no acute distress, non-toxic appearance. [] HENT: Normocephalic, atraumatic, bilateral external ears normal, oropharynx moist, no oral exudates, nose normal. [] Eyes: PERRLA, EOMI, conjunctiva normal, no discharge. [] Neck: Normal range of motion, no tenderness, supple, no stridor. [] Cardiovascular:Heart rate regular rhythm, no murmur [] Lungs & Thorax: Bilateral breath sounds clear to auscultation but diminished. [ ] Abdomen: Bowel sounds normal, soft, no tenderness, no masses, no pulsatile masses. [] Skin: Warm, dry, no erythema, no rash. [] Back: No tenderness, no CVA tenderness. [] Extremities: No tenderness, no cyanosis, no clubbing, ROM intact, no edema. [] Neurologic: Alert and oriented X 3, normal motor function, normal sensory function, no focal deficits noted. [] Psychologic: Affect normal, judgement normal, mood normal. [] EKG EKG [] Radiology/Procedures Radiology/Procedures [] Impressions: EXAM: AP View of the chest DATE: 12/30/2018 11:10 AM INDICATION: SHORT OF BREATH COMPARISON: 08/09/2018, 05/21/2018 FINDINGS: The heart is not enlarged. Atherosclerotic calcifications of the tortuous aorta are seen. Bilateral emphysematous changes are seen. In addition there is interstitial prominence most prominent in the lung bases. No lobar consolidation. No pleural effusion or pneumothorax. IMPRESSION: 1. Background of emphysematous changes bilaterally without evidence for acute cardiopulmonary process. Electronically signed by: Navdeep Ya MD (12/30/2018 11:30 AM) [id number] DICTATED AND SIGNED BY: NAVDEEP YA MD DATE: 12/30/18 1130 CC: ELISABET VICTORIA DO; J LUIS ROD MD Course & Med Decision Making Course & Med Decision Making Pertinent Labs and Imaging studies reviewed. (See chart for details) Patient's labs are significant for a pro BNP of greater than 7000. Review of his history shows he has had a level of only 800 in the past. CHF exacerbation is likely causing his shortness of breath. I will admit the patient to the hospital for management. I discussed the patient with Dr. Ewing and he agreed to admit the patient. [] Dragon Disclaimer Dragon Disclaimer This electronic medical record was generated, in whole or in part, using a voice recognition dictation system. Departure Departure: Impression: Primary Impression: CHF (congestive heart failure) Disposition: ADMITTED INPATIENT Condition: STABLE Referrals: J LUIS ROD MD (PCP) Problem Qualifiers Primary Impression: CHF (congestive heart failure) Heart failure type: systolic Heart failure chronicity: acute Qualified Codes: I50.21 - Acute systolic (congestive) heart failure ELISABET VICTORIA DO Dec 30, 2018 11:19
--- NOTE | 2018-12-30 11:33 | RAD ---
EXAM: AP View of the chest DATE: 12/30/2018 11:10 AM INDICATION: SHORT OF BREATH COMPARISON: 08/09/2018, 05/21/2018 FINDINGS: The heart is not enlarged. Atherosclerotic calcifications of the tortuous aorta are seen. Bilateral emphysematous changes are seen. In addition there is interstitial prominence most prominent in the lung bases. No lobar consolidation. No pleural effusion or pneumothorax. IMPRESSION: 1. Background of emphysematous changes bilaterally without evidence for acute cardiopulmonary process. Electronically signed by: Navdeep Heaton MD (12/30/2018 11:30 AM) [id number]
[2018-12-30 11:37] LABS: ALBUMIN 3.2 g/dL (3.4-5.0); ALBUMIN/GLOBULIN RATIO 0.9 (1.0-1.7); CALCIUM 8.7 mg/dL (8.5-10.1); CREATININE 1.1 mg/dL (0.7-1.3); GFR 64.4; POTASSIUM 4.6 mmol/L (3.5-5.1); TOTAL BILIRUBIN 0.2 mg/dL (0.2-1.0); TOTAL PROTEIN 6.8 g/dL (6.4-8.2)
[2018-12-30 12:16] LABS: INFLUENZA A PATIENT NEGATIVE (NEGATIVE); INFLUENZA B PATIENT NEGATIVE (NEGATIVE)
[2018-12-30] MEDS ORDERED: FUROSEMIDE 40 MG/4 ML VIAL IVP ONE (13:00)
[2018-12-30 15:08] VITALS: BP 132/68
[2018-12-30] MEDS ORDERED: MULT-690 PO (15:26)
[2018-12-30] MEDS ORDERED: ASPI-630 PO (15:26)
[2018-12-30] MEDS ORDERED: PHEN100C PO ×2 (15:26)
[2018-12-30] MEDS ORDERED: EZET10TA18 PO (15:26)
[2018-12-30] MEDS ORDERED: FURO40TA4 PO (15:26)
[2018-12-30] MEDS ORDERED: FOLI1TAB16 PO (15:26)
[2018-12-30] MEDS ORDERED: MAGN400T22 PO (15:26)
[2018-12-30] MEDS ORDERED: CARV6.25 PO (15:26)
[2018-12-30] MEDS ORDERED: CHOL10003 PO (15:26)
[2018-12-30] MEDS ORDERED: LISI-334 PO (15:26)
[2018-12-30 15:28] LABS: BILIRUBIN,URINE NEG (NEG); CLARITY,URINE CLEAR; COLOR,URINE YELLOW; GLUCOSE,URINE NEG (NEG)
[2018-12-30 15:29] LABS: BACTERIA,URINE 0 /HPF (0-FEW); NITRITE,URINE NEG (NEG); RBC,URINE 0 /HPF (0-2); SQUAMOUS EPITHELIAL CELL,UR OCC /LPF; UROBILINOGEN,URINE 0.2 mg/dL (0.2 mg/dL); WBC,URINE 0 /HPF (0-4)
[2018-12-30] MEDS: PHENYTOIN SODIUM EXTENDED 100 MG CAPSULE PO SCH ×3 (17:15→20:20)
[2018-12-30] MEDS: CARVEDILOL 6.25 MG TABLET PO SCH (17:21)
--- NOTE | 2018-12-30 17:33 | HP ---
ADMIT DATE: 12/30/2018 HISTORY OF PRESENT ILLNESS: The patient is an 78-year-old male patient who came to the Emergency Room with complaint of shortness of breath. He has been feeling short of breath for the last 5 days, had mild intermittent cough. He denied any fever, denied any nausea, vomiting, diarrhea or chest pain. He apparently has had an echocardiogram, has a followup ordered by Dr. Ingram as he had 3 stents employed last August and the echocardiogram showed that his ejection systolic function is severely impaired with an ejection fraction of 20%. There is moderate concentric left ventricular hypertrophy, has global hypokinesis of the left ventricle. There is severe aortic stenosis with low flow, low gradient. Doppler and color flow revealed moderate to severe mitral regurgitation and the patient was admitted for further evaluation and treatment. He did receive 40 mg of IV Lasix while at the Emergency Room and his lab work showed his beta natriuretic peptide to be 7633. His first set of cardiac enzymes showed troponin to be less than 0.029. The patient was admitted. We will consult the cardiology team. I will resume all his medication. PAST MEDICAL HISTORY: Significant for hypertension, hyperlipidemia, benign prostatic hypertrophy, bladder cancer, rheumatic fever, severe aortic stenosis, and chronic obstructive pulmonary disease. He is also known to have senile macular degeneration. He has left-sided hemiplegia. PAST SURGICAL HISTORY: Significant for appendectomy, two hernia repairs, bladder cancer resection x 3, colonoscopy. ALLERGIES: He has no known drug allergies. MEDICATIONS: He is currently on following medications: He is on Flomax 0.4 mg daily, Plavix 75 mg once a day, Zetia 10 mg once a day, atorvastatin calcium 40 mg at bedtime, carvedilol 6.25 mg twice a day, lisinopril 20 mg once a day, aspirin 81 mg once a day, phenytoin sodium extended release 200 mg daily and phenytoin sodium extended release 200 mg at bedtime. He is on furosemide 40 mg once a day, magnesium oxide 400 mg twice a day, famotidine 20 mg twice a day, folic acid 1 mg daily, vitamin B complex one tablet once a day, cholecalciferol for vitamin D3 one tablet once a day, multivitamin with mineral 1 tablet once a day, fish oil, omega 3 fatty acid 2000 mg daily and PreserVision added soft gel one twice a day. FAMILY HISTORY: He has 1 brother and 3 sisters. His brother at the age of 84 because of myocardial infarction, alcoholism. His oldest sister of Alzheimer disease, has 2 sisters that are relatively healthy. His father and mother at the age of 85. The cause of their is unknown. SOCIAL HISTORY: He is , has 2 daughters and 1 son. He quit smoking about 9 years ago. He does not drink alcohol or use any recreational drugs. 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 REVIEW OF SYSTEMS: As per history of present illness. PHYSICAL EXAMINATION: GENERAL: On arrival to the Emergency Room, the patient looked somewhat pale, cachectic, but no jaundice, cyanosis, or thyromegaly. No jugular venous distension. No lower limb edema. VITAL SIGNS: His heart rate was 86, blood pressure 120/73, temperature was 97.9, respiratory rate was 20, and oxygen saturation was 97%. HEAD, EYES, EARS, NOSE AND THROAT: Showed normocephalic, atraumatic. NECK: Supple. HEART: Showed normal first and second heart sounds with no gallop, rub or murmur. CHEST: Shows central trachea, equally reduced expansion, reduced air entry, vesicular breath sounds. I could not really appreciate any crepitation or rhonchi. ABDOMEN: Scaphoid, soft, nontender. No guarding or rigidity. No organomegaly. All hernial orifice intact. Bowel sounds normal. NEUROLOGIC: He was awake, alert, responds at times appropriately. All his cranial nerves are intact. He has a left-sided hemiparesis with fixed flexion contracture of his left arm and wrist. LABORATORY DATA: On arrival to the Emergency Room showed a white cell count of 6500, hemoglobin 11, hematocrit 34, MCV 98 and platelet count 250,000 with normal manual differential. His chemistry showed a serum sodium of 142, potassium 4.6, chloride 105, bicarbonate 29, anion gap of 8, BUN 24, creatinine of 1.1. His glucose was 98, calcium was 8.7. Total bilirubin and alkaline phosphatase were normal. AST, ALT slightly elevated. His troponin was less than 0.029. His beta natriuretic peptide was 7633. Total protein was 6.8, albumin 3.2. Urinalysis was essentially unremarkable. His influenza A and B were negative. His chest x-ray showed that there is atherosclerotic calcification of the tortuous aorta seen. The heart is not enlarged, bilateral emphysematous changes are seen. In addition, there is interstitial prominence, most prominent in the lung bases. No lobar consolidation, no pleural effusion or pneumothorax. ASSESSMENT AND PLAN: The plan is to do 2 more sets of cardiac enzymes. Patient has already had an echocardiogram done this morning, which showed that he has severe left ventricular systolic dysfunction, ejection fraction of 20%. We will obviously consult the cardiology team and decide on further management accordingly. JULY SONG MD DR: LACEY/kamaljit JOB#: [id number] / [id number]
[2018-12-30 19:23] VITALS: BP 99/64
[2018-12-30] MEDS: MULTIVITAMIN I-VITE TABLET. PO SCH (20:20)
[2018-12-30] MEDS: MAGNESIUM OXIDE 400 MG TABLET PO SCH (20:20)
[2018-12-30] MEDS: TAMSULOSIN 0.4 MG CAP.ER.24H. PO SCH (20:20)
[2018-12-30] MEDS: ATORVASTATIN CALCIUM 20 MG TABLET PO SCH (20:20)
[2018-12-30] MEDS: FAMOTIDINE 20 MG TABLET PO SCH (20:20)
[2018-12-30 23:02] VITALS: BP 97/61
[2018-12-31 05:54] VITALS: BP 108/68
[2018-12-31] MEDS: CARVEDILOL 6.25 MG TABLET PO SCH (08:00)
[2018-12-31] MEDS: VITAMIN B COMPLEX CAPSULE. PO SCH (08:03)
[2018-12-31] MEDS: OMEGA-3 FATTY ACIDS/FISH OIL 1,000 MG CAPSULE. PO SCH (08:04)
[2018-12-31] MEDS: MAGNESIUM OXIDE 400 MG TABLET PO SCH ×2 (08:04→21:12)
[2018-12-31] MEDS: PHENYTOIN SODIUM EXTENDED 100 MG CAPSULE PO SCH ×2 (08:04→21:11)
[2018-12-31] MEDS: CLOPIDOGREL BISULFATE 75 MG TABLET PO SCH (08:04)
[2018-12-31] MEDS: EZETIMIBE 10 MG TABLET PO SCH (08:05)
[2018-12-31] MEDS: FOLIC ACID 1 MG TABLET PO SCH (08:05)
[2018-12-31] MEDS: MULTIVITAMIN I-VITE TABLET. PO SCH ×2 (08:05→21:12)
[2018-12-31] MEDS: FAMOTIDINE 20 MG TABLET PO SCH ×2 (08:05→21:11)
[2018-12-31] MEDS: CHOLECALCIFEROL (VITAMIN D3) 1,000 UNIT TABLET PO SCH (08:05)
[2018-12-31] MEDS: ASPIRIN 81 MG TAB.CHEW PO SCH (08:05)
--- NOTE | 2018-12-31 08:23 | PDOC2 ---
AYDEN TOUSSAINT Ean BRUSH HEAD MAKER 12/31/18 0823: CONSULT Date of Admission DATE: 12/31/18 TIME: 08:23 Reason for Consult: chf Problem List Problems Medical Problems: (1) CHF (congestive heart failure) Status: Acute History of Present Illness Mr Garcia is an 78-year-old male who presented to ED with complaints of shortness of breath. He apparently reported increased dyspnea for 5 days with mild intermittent cough, denies fever, nausea, vomiting, diarrhea or chest pain. He is currently sitting in bed and appears mildly dyspneic at rest. He is however very uncooperative and refuses to answer any questions or give any history. He is also refusing PT/OT. It is unclear if this is normal behavior for this patient. History is obtained from the chart. Record review reveals cardiac catheterization in April 2018 showing 70% left main coronary artery stenosis, 70% RCA stenosis and was recommended high risk PCI with impella hemodynamic support. However, patient was transferred to [facility] based on Dr. Calderon's request. He was evaluated by interventional cardiology in April 2018 and medical mgmt was recommended due to subdural hematoma with plans for valvuloplasty and PCI/stenting when cleared for antiplatelet therapy followed by possible TAVR. He was also evaluated by EP in May 2018 for possible ICD and had plan for ICD implant if no improvement of EF after PCI. He was subsequently readmitted to [facility] in August 2018 with NSTEMI and underwent complex PCI with impella support and successful PCI/stent to LM, LCx and PTCA to LAD. He was most recently seen in office in September at which time he was recommended to have repeat echocardiogram (which was scheduled for next week) followed by possible referral to [facility] for TAVR. Past Medical History Cardiac cath 09/08/18 FINDINGS 1. The left main coronary artery arose from the left sinus of Valsalva, gave rise to the left anterior descending and left circumflex arteries and showed 70- 80% stenosis with an ulcerated plaque in the mid to distal segment. 2. The left anterior descending artery did not show any significant stenosis. 3. The left circumflex artery showed 90% ostial segment stenosis. 4. The right coronary artery was a large and dominant vessel arising from the right sinus of Valsalva that showed 60-70% stenosis involving the proximal to midsegment. Conclusion Severe three-vessel coronary artery disease including left main coronary artery stenosis echo 09/07/18 Left ventricle systolic function is mildly impaired. The Ejection Fraction is 40%. Transmitral Doppler flow pattern is Grade I-abnormal relaxation pattern. There is severe valvular aortic stenosis with calculated ERIS 0.7 cm2 with mean pressure gradient of 49 mmHg. Mild to moderate aortic regurgitation. Mild mitral regurgitation. Mild to moderate tricuspid regurgitation. There is mild pulmonary hypertension. The PA pressure was estimated at 50 mmHg. There is no evidence of significant pericardial effusion. Severe aortic stenosis, deemed a poor TAVR candidate at [facility]. Chronic systolic heart failure, ischemic cardiomyopathy with LVEF 40% in Aug 2018. Cardiovascular: CAD, HTN, Hyperlipidemia, Aortic stenosis, ICM Pulmonary: COPD CENTRAL NERVOUS SYSTEM: CVAs, Seizures Heme/Onc: Anemia NOS, Cancer Psych: No pertinent hx Musculoskeletal: Osteoarthritis Rheumatologic: No pertinent hx, Other Infectious disease: No pertinent hx Renal/: Benign prostatic enlarg. Endocrine: No pertinent hx Past Surgical History Appendectomy, Hernia Repair, cancer surgery Family History Family History Unknown, non contributory due to age Social History ALCOHOL: none Drugs: None Lives: with Family Current Medications Current Medications Furosemide (Lasix) 40 mg 1X ONCE IVP Last administered on 12/30/18 12:55; Start 12/30/18 at 13:00; Stop 12/30/18 at 13:01; Status DC Vitamin D (Vitamin D3) 1,000 unit DAILY PO Last administered on 12/31/18 08:05 ; Start 12/31/18 at 09:00 Clopidogrel Bisulfate (Plavix) 75 mg DAILY PO Last administered on 12/31/18 08: 04; Start 12/31/18 at 09:00 Lisinopril (Prinivil) 20 mg DAILY PO Last administered on 12/31/18 08:06; Start 12/31/18 at 09:00 Tamsulosin HCl (Flomax) 0.4 mg QHS PO Last administered on 12/30/18 20:20; Start 12/30/18 at 21:00 Aspirin (Children'S Aspirin) 81 mg DAILYWBKFT PO Last administered on 12/31/18 08:05; Start 12/31/18 at 08:00 Atorvastatin Calcium (Lipitor) 40 mg QHS PO Last administered on 12/30/18 20:20 ; Start 12/30/18 at 21:00 Carvedilol (Coreg) 6.25 mg BIDWMEALS PO Last administered on 12/30/18 17:21; Start 12/30/18 at 17:00 EZETIMIBE (Zetia) 10 mg DAILY PO Last administered on 12/31/18 08:05; Start 12/31/18 at 09:00 Famotidine (Pepcid) 20 mg BID PO Last administered on 12/31/18 08:05; Start 12/30/18 at 21:00 Fish Oil (Fish Oil) 2,000 mg DAILY PO Last administered on 12/31/18 08:04; Start 12/31/18 at 09:00 Folic Acid (Folic Acid) 1 mg DAILY PO Last administered on 12/31/18 08:05; Start 12/31/18 at 09:00 Magnesium Oxide (Magnesium Oxide) 400 mg BID PO Last administered on 12/31/18 08:04; Start 12/30/18 at 21:00 Multivitamins/ Calcium (Thera-M Plus) 1 tab DAILY PO ; Start 12/31/18 at 09:00; Stop 12/31/18 at 09:00; Status DC Phenytoin Sodium (Dilantin) 200 mg DAILY PO Last administered on 12/31/18 08:04 ; Start 12/30/18 at 17:15 Phenytoin Sodium (Dilantin) 200 mg QHS PO Last administered on 12/30/18 20:20; Start 12/30/18 at 17:15 Multivitamins/ Minerals (I-Jm) 1 tab BID PO Last administered on 12/31/18 08: 05; Start 12/30/18 at 21:00 Vitamin B Complex 1 cap DAILY PO Last administered on 12/31/18 08:03; Start 12/31/18 at 09:00 Active Scripts Active Reported Folic Acid 1 Mg Tablet 1 Tab PO DAILY Vitamin D3 (Cholecalciferol (Vitamin D3)) 1,000 Unit Tablet 1 Tab PO DAILY Centrum Silver Men Tablet (Multivit-Min/FA/Lycopen/Lutein) 1 Each Tablet 1 Each PO DAILY Mag-Oxide (Magnesium Oxide) 400 Mg Tablet 1 Tab PO BID Aspirin 81 Mg Tab.chew 81 Mg PO DAILY Dilantin (Phenytoin Sodium Extended) 100 Mg Capsule 200 Mg PO QHS Dilantin (Phenytoin Sodium Extended) 100 Mg Capsule 200 Mg PO DAILY Coreg (Carvedilol) 6.25 Mg Tablet 6.25 Mg PO BIDWMEALS Furosemide 40 Mg Tablet 1 Tab PO DAILY PRN Zetia (Ezetimibe) 10 Mg Tablet 1 Tab PO DAILY Lisinopril 20 Mg Tablet 1 Tab PO DAILY [place] 3-6-9 1,200 mg Softgel (Fish Oil/Borage/Flax/Om3,6,9#1) 1,200 Mg Capsule 2 ,000 Mg PO DAILY B Complex (Vitamin B Complex) 1 Each Tablet 1 Each PO DAILY Lipitor (Atorvastatin Calcium) 40 Mg Tablet 1 Tab PO QHS Flomax (Tamsulosin Hcl) 0.4 Mg Cap.er.24h 1 Cap PO QHS Preservision Areds Softgel (Vit A/Vit C/Vit E/Zinc/Copper) 1 Each Capsule 1 Each PO BID Famotidine 20 Mg Tablet 1 Tab PO BID Plavix (Clopidogrel Bisulfate) 75 Mg Tablet 1 Tab PO DAILY Allergies: Coded Allergies: No Known Drug Allergies (Unverified , 09/18/17) Review of System unobtainable due to patient lack of cooperation General: Alert, Other (uncooperative) Lungs: Other (decreased with basilar crackles) Heart: Other (regular, tachycardic, +ESM, limited due to lack of patient cooperation) Abdomen: Normal bowel sounds Extremities: Other (trace edema) Neuro: Normal speech Psych/Mental Status: Other (angry, uncooperative) VITALS Vital Signs Date Time Temp Pulse Resp B/P (MAP) Pulse Ox O2 Delivery O2 Flow Rate FiO2 12/31/18 08:06 90 108/68 12/31/18 05:54 98.1 92 12/30/18 23:02 22 12/30/18 20:00 Room Air Labs Laboratory Tests Test 12/30/18 11:05 12/30/18 11:40 12/30/18 15:10 12/30/18 17:00 White Blood Count 6.5 x10^3/uL (4.0-11.0) Red Blood Count 3.46 x10^6/uL (4.30-5.70) Hemoglobin 11.1 g/dL (13.0-17.5) Hematocrit 34.0 % (39.0-53.0) Mean Corpuscular Volume 98 fL (79-100) Mean Corpuscular Hemoglobin 32 pg (25-35) Mean Corpuscular Hemoglobin Concent 33 g/dL (31-37) Red Cell Distribution Width 15.1 % (11.5-14.5) Platelet Count 350 x10^3/uL (140-400) Neutrophils (%) (Auto) 72 % (31-73) Lymphocytes (%) (Auto) 16 % (24-48) Monocytes (%) (Auto) 10 % (0-9) Eosinophils (%) (Auto) 1 % (0-3) Basophils (%) (Auto) 1 % (0-3) Neutrophils # (Auto) 4.7 x10^3uL (1.8-7.7) Lymphocytes # (Auto) 1.1 x10^3/uL (1.0-4.8) Monocytes # (Auto) 0.7 x10^3/uL (0.0-1.1) Eosinophils # (Auto) 0.1 x10^3/uL (0.0-0.7) Basophils # (Auto) 0.1 x10^3/uL (0.0-0.2) Sodium Level 142 mmol/L (136-145) Potassium Level 4.6 mmol/L (3.5-5.1) Chloride Level 105 mmol/L (98-107) Carbon Dioxide Level 29 mmol/L (21-32) Anion Gap 8 (6-14) Blood Urea Nitrogen 24 mg/dL (8-26) Creatinine 1.1 mg/dL (0.7-1.3) Estimated GFR (Cockcroft-Gault) 64.4 BUN/Creatinine Ratio 22 (6-20) Glucose Level 98 mg/dL (70-99) Calcium Level 8.7 mg/dL (8.5-10.1) Total Bilirubin 0.2 mg/dL (0.2-1.0) Aspartate Amino Transf (AST/SGOT) 58 U/L (15-37) Alanine Aminotransferase (ALT/SGPT) 78 U/L (16-63) Alkaline Phosphatase 113 U/L (46-116) Troponin I Quantitative 0.029 ng/mL (0-0.055) 0.040 ng/mL (0-0.055) IA-Dla-L-Type Natriuretic Peptide 7633 pg/mL (0-449) Total Protein 6.8 g/dL (6.4-8.2) Albumin 3.2 g/dL (3.4-5.0) Albumin/Globulin Ratio 0.9 (1.0-1.7) Influenza Type A (Rapid) Negative (NEGATIVE) Influenza Type B (Rapid) Negative (NEGATIVE) Urine Collection Type Unknown Urine Color Yellow Urine Clarity Clear Urine pH 6.5 Urine Specific [place] 1.010 Urine Protein Neg (NEG-TRACE) Urine Glucose (UA) Neg mg/dL (NEG) Urine Ketones (Stick) Neg mg/dL (NEG) Urine Blood Neg (NEG) Urine Nitrite Neg (NEG) Urine Bilirubin Neg (NEG) Urine Urobilinogen Dipstick 0.2 mg/dL (0.2 mg/dL) Urine Leukocyte Esterase Neg (NEG) Urine RBC 0 /HPF (0-2) Urine WBC 0 /HPF (0-4) Urine Squamous Epithelial Cells Occ /LPF Urine Bacteria 0 /HPF (0-FEW) Images CXR - IMPRESSION: 1. Background of emphysematous changes bilaterally without evidence for acute cardiopulmonary process. Assessment/Plan 1. Valvular heart disease with Severe Aortic stenosis, low flow, low gradient, moderate aortic insufficiency and moderate to severe mitral regurgitation with severe systolic dysfunction EF 20% by echo yesterday. 2. CAD s/p complex PCI/stenting - Amy neg. Continue medical therapy. 3. Chronic systolic heart failure - maintaining SaO2 on room air. CXR showing no acute cardiovascular abn. Continue medical therapy with BB, ACEI and diuretic as needed. 4. ischemic/nonischemic cardiomyopathy - EF down to 20% 5. hypertensive heart disease - currently mildly hypotensive 6. hyperlipidemia 7. left bundle branch block, tachycardia, suspect flutter - ekg pending 8. mild hepatic insufficiency - Likely congestive Limited assessment due to patient compliance however Maintaining Sao2 on room air. Severe Aortic stenosis, pending eval at or back to [facility] for possible TAVR. Severe systolic dysfunction despite guideline medical therapy would warrant ICD placement for primary prevention. Patient and family will need to determine where they are planning to obtain their cardiovascular care. Poss atrial flutter on tele, EKG pending. SANDY GUTHRIE MD 12/31/18 9765: CONSULT Assessment/Plan Pt. seen and examined. 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 Complex patient with multiple comorbidities Spent 15 minutes with family discussing his care. He has severe and severe LV dysfunction. Options include high risk BAV as a bridge to TAVR if LV improves or consider hospice care. BP is hard to control due to above. He appears euvolemic on exam. Dyspnea related to LV dysfunction and , not volume overload. Family will discuss and make final plans by a.m. If aggressive care then plan to have close f/u with [facility] and Dr. calderon, otherwise, consider cardiac hospice. Thanks. D/w AYDEN Castano APRN Dec 31, 2018 08:23 SANDY GUTHRIE MD Dec 31, 2018 16:21
[2018-12-31] MEDS ORDERED: LISINOPRIL 20 MG TABLET PO SCH (09:00)
[2018-12-31] MEDS ORDERED: MULTIVITAMIN with MINERAL TABLET. PO SCH (09:00)
[2018-12-31 10:51] VITALS: BP 109/57
--- NOTE | 2018-12-31 13:05 | EKG ---
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
--- NOTE | 2018-12-31 13:09 | EKG ---
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
[2018-12-31] MEDS: CARVEDILOL 3.125 MG TABLET PO SCH (15:06)
[2018-12-31 15:17] VITALS: BP 96/57
[2018-12-31 15:53] VITALS: BP 101/62
[2018-12-31 16:15] LABS: CALCIUM 8.4 mg/dL (8.5-10.1); CREATININE 1.4 mg/dL (0.7-1.3); GFR 48.8; POTASSIUM 4.1 mmol/L (3.5-5.1)
[2018-12-31 19:44] VITALS: BP 96/59
[2018-12-31] MEDS: TAMSULOSIN 0.4 MG CAP.ER.24H. PO SCH (21:11)
[2018-12-31] MEDS: ATORVASTATIN CALCIUM 20 MG TABLET PO SCH (21:12)
[2018-12-31 22:29] VITALS: BP 115/76
--- NOTE | 2018-12-31 23:16 | PN ---
DATE: 12/31/2018 SUBJECTIVE: The patient is resting, slightly propped up in bed, in no apparent respiratory distress. PHYSICAL EXAMINATION: GENERAL: He was pale, extremely cachectic, but no jaundice, cyanosis, or thyromegaly. No jugular venous distension. No lower limb edema. VITAL SIGNS: His heart rate was 84, blood pressure was 96/57, temperature was 98.6, respiratory rate was 20, and oxygen saturation was 95% on room air. HEAD, EYES, EARS, NOSE AND THROAT: Showed normocephalic, atraumatic. NECK: Supple. HEART: Showed normal first and second heart sounds. No gallop, rub or murmur. CHEST: Clear to auscultation. No crepitation or rhonchi. ABDOMEN: Scaphoid, soft, nontender. NEUROLOGIC: He was awake, alert, responding appropriately. He has left-sided hemiparesis. His intake over the last 24 hours was incompletely recorded, output was again incompletely recorded. LABORATORY WORK: As of yesterday showed a white cell count 6500, hemoglobin 11, hematocrit 34, MCV 98 and platelet count 350,000. His chemistry showed a serum sodium 142, potassium 4.6, chloride 105, bicarbonate 29, anion gap of 8, BUN 24, creatinine 1.1, estimated GFR was 64 mL per minute. His glucose was 98, calcium was 8.7. He has 2 sets of cardiac enzymes showed that the creatinine is slightly elevated. The troponin was slightly elevated at 0.029 and 0.040. ASSESSMENT: 1. Valvular heart disease with severe aortic stenosis, moderate aortic insufficiency, moderate to severe mitral regurgitation, severe systolic dysfunction, ejection fraction 20% by echo. 2. Coronary artery disease/complex percutaneous coronary intervention and stenting. Cardiac enzyme so far negative. 3. Chronic systolic heart failure, maintaining oxygen saturation at room air. Chest x-ray showed no cardiovascular abnormalities. 4. Nonischemic cardiomyopathy with ejection fraction 20%, hypertensive heart disease, hyperlipidemia, left bundle branch block, tachycardia, mild hepatic insufficiency. PLAN: To repeat his lab work this morning. I spoke with Dr. Franky Darling, who wants to meet with him and his on Saturday to decide on aortic valve replacement. JULY SONG MD DR: LACEY/[email or web address] JOB#: [id number] / [id number]
[2019-01-01 05:15] VITALS: BP 110/70
[2019-01-01] MEDS: CHOLECALCIFEROL (VITAMIN D3) 1,000 UNIT TABLET PO SCH (07:47)
[2019-01-01] MEDS: FOLIC ACID 1 MG TABLET PO SCH (07:47)
[2019-01-01] MEDS: OMEGA-3 FATTY ACIDS/FISH OIL 1,000 MG CAPSULE. PO SCH (07:47)
[2019-01-01] MEDS: ASPIRIN 81 MG TAB.CHEW PO SCH (07:47)
[2019-01-01] MEDS: FAMOTIDINE 20 MG TABLET PO SCH (07:47)
[2019-01-01] MEDS: VITAMIN B COMPLEX CAPSULE. PO SCH (07:48)
[2019-01-01] MEDS: MULTIVITAMIN I-VITE TABLET. PO SCH (07:48)
[2019-01-01] MEDS: MAGNESIUM OXIDE 400 MG TABLET PO SCH (07:48)
[2019-01-01] MEDS: PHENYTOIN SODIUM EXTENDED 100 MG CAPSULE PO SCH (07:48)
[2019-01-01] MEDS: EZETIMIBE 10 MG TABLET PO SCH (07:48)
[2019-01-01] MEDS: CLOPIDOGREL BISULFATE 75 MG TABLET PO SCH (07:48)
[2019-01-01] MEDS: CARVEDILOL 3.125 MG TABLET PO SCH ×2 (07:52→16:56)
[2019-01-01] MEDS ORDERED: LISINOPRIL 10 MG TABLET PO SCH (09:00)
[2019-01-01 11:26] VITALS: BP 99/63
--- NOTE | 2019-01-01 14:56 | PDOC ---
PROGRESS NOTES Diagnosis Problem Problems Medical Problems: (1) CHF (congestive heart failure) Status: Acute Assessment Problems Medical Problems: (1) CHF (congestive heart failure) Status: Acute 1. Valvular heart disease with Severe Aortic stenosis, low flow, low gradient, moderate aortic insufficiency and moderate to severe mitral regurgitation with severe systolic dysfunction EF 20% by echo. Recommendation for BAV/TAVR vs Cardiac hospice. If family and patient request ongoing aggressive management, [facility] would be [facility] or for valvuloplasty as bridge to TAVR if appropriate. 2. CAD s/p complex PCI/stenting - Amy neg. Continue medical therapy. 3. Chronic systolic heart failure - maintaining SaO2 on room air. CXR showing no acute cardiovascular abn. Continue medical therapy with BB, ACEI and diuretic as needed. 4. ischemic/nonischemic cardiomyopathy - EF down to 20% 5. hypertensive heart disease - controlled blood pressures. goal sbp ~120mmhg 6. hyperlipidemia 7. left bundle branch block, tachycardia, suspect flutter - ekg pending 8. mild hepatic insufficiency -stable. Subjective "ready to go home" no chest pain, breathing easy. no palpitations. Objective Vital Signs Date Time Temp Pulse Resp B/P (MAP) Pulse Ox O2 Delivery O2 Flow Rate FiO2 01/01/19 11:26 97.8 82 20 99/63 (75) 96 Room Air Intake and Output 01/01/19 07:00 Intake Total 720 ml Output Total 100 ml Balance 620 ml Intake Oral 720 ml Output Urine Total 100 ml # Voids 3 Physical Exam gen: awake, alert, cooperative CV RRR, no gallops Lungs: essentially clear abd: soft, +BS Ext: no edema Review of Relevant I have reviewed the following items pretty (where applicable) has been applied. Labs Laboratory Tests Test 12/30/18 15:10 12/30/18 17:00 12/31/18 15:50 Urine Collection Type Unknown Urine Color Yellow Urine Clarity Clear Urine pH 6.5 Urine Specific [place] 1.010 Urine Protein Neg (NEG-TRACE) Urine Glucose (UA) Neg mg/dL (NEG) Urine Ketones (Stick) Neg mg/dL (NEG) Urine Blood Neg (NEG) Urine Nitrite Neg (NEG) Urine Bilirubin Neg (NEG) Urine Urobilinogen Dipstick 0.2 mg/dL (0.2 mg/dL) Urine Leukocyte Esterase Neg (NEG) Urine RBC 0 /HPF (0-2) Urine WBC 0 /HPF (0-4) Urine Squamous Epithelial Cells Occ /LPF Urine Bacteria 0 /HPF (0-FEW) Troponin I Quantitative 0.040 ng/mL (0-0.055) Sodium Level 142 mmol/L (136-145) Potassium Level 4.1 mmol/L (3.5-5.1) Chloride Level 104 mmol/L (98-107) Carbon Dioxide Level 30 mmol/L (21-32) Anion Gap 8 (6-14) Blood Urea Nitrogen 27 mg/dL (8-26) Creatinine 1.4 mg/dL (0.7-1.3) Estimated GFR (Cockcroft-Gault) 48.8 Glucose Level 103 mg/dL (70-99) Calcium Level 8.4 mg/dL (8.5-10.1) Medications Current Medications Furosemide (Lasix) 40 mg 1X ONCE IVP Last administered on 12/30/18 12:55; Start 12/30/18 at 13:00; Stop 12/30/18 at 13:01; Status DC Vitamin D (Vitamin D3) 1,000 unit DAILY PO Last administered on 01/01/19 07:47 ; Start 12/31/18 at 09:00 Clopidogrel Bisulfate (Plavix) 75 mg DAILY PO Last administered on 01/01/19 07: 48; Start 12/31/18 at 09:00 Lisinopril (Prinivil) 20 mg DAILY PO Last administered on 12/31/18 08:06; Start 12/31/18 at 09:00; Stop 12/31/18 at 09:00; Status DC Tamsulosin HCl (Flomax) 0.4 mg QHS PO Last administered on 12/31/18 21:11; Start 12/30/18 at 21:00 Aspirin (Children'S Aspirin) 81 mg DAILYWBKFT PO Last administered on 01/01/19 07:47; Start 12/31/18 at 08:00 Atorvastatin Calcium (Lipitor) 40 mg QHS PO Last administered on 12/31/18 21:12 ; Start 12/30/18 at 21:00 Carvedilol (Coreg) 6.25 mg BIDWMEALS PO Last administered on 12/30/18 17:21; Start 12/30/18 at 17:00; Stop 12/31/18 at 08:24; Status DC EZETIMIBE (Zetia) 10 mg DAILY PO Last administered on 01/01/19 07:48; Start 12/31/18 at 09:00 Famotidine (Pepcid) 20 mg BID PO Last administered on 01/01/19 07:47; Start 12/30/18 at 21:00 Fish Oil (Fish Oil) 2,000 mg DAILY PO Last administered on 01/01/19 07:47; Start 12/31/18 at 09:00 Folic Acid (Folic Acid) 1 mg DAILY PO Last administered on 01/01/19 07:47; Start 12/31/18 at 09:00 Magnesium Oxide (Magnesium Oxide) 400 mg BID PO Last administered on 01/01/19 07:48; Start 12/30/18 at 21:00 Multivitamins/ Calcium (Thera-M Plus) 1 tab DAILY PO ; Start 12/31/18 at 09:00; Stop 12/31/18 at 09:00; Status DC Phenytoin Sodium (Dilantin) 200 mg DAILY PO Last administered on 01/01/19 07:48 ; Start 12/30/18 at 17:15 Phenytoin Sodium (Dilantin) 200 mg QHS PO Last administered on 12/31/18 21:11; Start 12/30/18 at 17:15 Multivitamins/ Minerals (I-Jm) 1 tab BID PO Last administered on 01/01/19 07: 48; Start 12/30/18 at 21:00 Vitamin B Complex 1 cap DAILY PO Last administered on 01/01/19 07:48; Start 12/31/18 at 09:00 Carvedilol (Coreg) 3.125 mg BIDWMEALS PO ; Start 12/31/18 at 17:00 Lisinopril (Prinivil) 10 mg DAILY PO ; Start 01/01/19 at 09:00 Active Scripts Active Reported Folic Acid 1 Mg Tablet 1 Tab PO DAILY Vitamin D3 (Cholecalciferol (Vitamin D3)) 1,000 Unit Tablet 1 Tab PO DAILY Centrum Silver Men Tablet (Multivit-Min/FA/Lycopen/Lutein) 1 Each Tablet 1 Each PO DAILY Mag-Oxide (Magnesium Oxide) 400 Mg Tablet 1 Tab PO BID Aspirin 81 Mg Tab.chew 81 Mg PO DAILY Dilantin (Phenytoin Sodium Extended) 100 Mg Capsule 200 Mg PO QHS Dilantin (Phenytoin Sodium Extended) 100 Mg Capsule 200 Mg PO DAILY Coreg (Carvedilol) 6.25 Mg Tablet 6.25 Mg PO BIDWMEALS Furosemide 40 Mg Tablet 1 Tab PO DAILY PRN Zetia (Ezetimibe) 10 Mg Tablet 1 Tab PO DAILY Lisinopril 20 Mg Tablet 1 Tab PO DAILY [place] 3-6-9 1,200 mg Softgel (Fish Oil/Borage/Flax/Om3,6,9#1) 1,200 Mg Capsule 2 ,000 Mg PO DAILY B Complex (Vitamin B Complex) 1 Each Tablet 1 Each PO DAILY Lipitor (Atorvastatin Calcium) 40 Mg Tablet 1 Tab PO QHS Flomax (Tamsulosin Hcl) 0.4 Mg Cap.er.24h 1 Cap PO QHS Preservision Areds Softgel (Vit A/Vit C/Vit E/Zinc/Copper) 1 Each Capsule 1 Each PO BID Famotidine 20 Mg Tablet 1 Tab PO BID Plavix (Clopidogrel Bisulfate) 75 Mg Tablet 1 Tab PO DAILY Vitals/I & O Vital Sign - Last 24 Hours 12/31/18 12/31/18 12/31/18 12/31/18 15:06 15:17 15:53 19:44 Temp 98.5 98.5 Pulse 86 84 83 83 Resp 20 16 20 B/P (MAP) 109/57 96/57 (70) 101/62 (75) 96/59 (71) Pulse Ox 94 94 O2 Delivery Room Air Room Air Room Air 12/31/18 12/31/18 01/01/19 01/01/19 20:00 22:29 05:15 07:52 Temp 97.8 98.0 Pulse 88 84 84 Resp 20 20 B/P (MAP) 115/76 (89) 110/70 (83) 110/70 Pulse Ox 95 96 O2 Delivery Room Air Room Air Room Air 01/01/19 01/01/19 08:00 11:26 Temp 97.8 Pulse 82 Resp 20 B/P (MAP) 99/63 (75) Pulse Ox 96 O2 Delivery Room Air Room Air Intake and Output 12/31/18 12/31/18 01/01/19 15:00 23:00 07:00 Intake Total 360 ml 360 ml Output Total 100 ml Balance 360 ml 360 ml -100 ml BREANA,AYDEN J POWER SWITCHBOARD OPERATOR Jan 01, 2019 14:56
[2019-01-01 15:41] VITALS: BP 97/61
[2019-01-01 16:56] VITALS: BP 97/61
--- NOTE | 2019-01-01 18:48 | DS ---
DATE OF DISCHARGE: 01/01/2019 HOSPITAL COURSE: The patient is an 78-year-old male patient who apparently has had an echocardiogram done to evaluate his left ventricular systolic function as ordered by Dr. Ingram and his echocardiogram showed that he has systolic function was severely impaired with ejection fraction less than 20%. There is moderate concentric left ventricular hypertrophy. There is global hypokinesis of left ventricle, severe aortic valve stenosis, low flow, low gradient. Doppler and color flow revealed moderate to severe mitral regurgitation. His stated that he has been complaining of shortness of breath and therefore, he was brought to the Emergency Room and was admitted for further evaluation. He was seen by the cardiology team and basically the cardiology team, Dr. Rios, the nurse practitioner and Dr. Alfred, have talked to the patient and his family in detail and basically given two options of to be aggressive and make a choice with one of these cardiology groups either [facility] or [facility] or consider hospice given the severity of his heart disease. The patient and family has been going around and around and finally a decision was made that they would keep their appointment with Dr. Pérez tomorrow and then they make a decision thereafter to consider either aggressive treatment and/or consider hospice care. PHYSICAL EXAMINATION: GENERAL: When I saw him today, he was resting, slightly propped up in bed, in no apparent respiratory distress, pale, cachectic, but no jaundice, cyanosis, or thyromegaly. No jugular venous distension. No lower limb edema. VITAL SIGNS: His heart rate was 75, blood pressure was 97/61, temperature was 98.2, respiratory rate 20 and oxygen saturation was 96%. HEENT: Examination of the head, eyes, ears, nose and throat showed normocephalic, atraumatic. HEART: His heart showed normal first and second heart sounds. No gallop, rub or murmur. CHEST: Clear to auscultation. No crepitation or rhonchi. ABDOMEN: Scaphoid, soft, nontender. NEUROLOGIC: He was awake, alert, responding appropriately. He has left-sided hemiparesis. His intake over the last 24 hours was 660, output was 950. LABORATORY DATA: His lab work showed a white cell count 6500, hemoglobin 11, hematocrit 34, MCV 98 and platelet count 350,000. His chemistry showed a serum sodium 142, potassium 4.1, chloride 104, bicarbonate 30, anion gap of 8, BUN 27, creatinine 1.4, estimated GFR was 49 mL per minute, glucose 103, calcium was 8.4. DISCHARGE MEDICATIONS: He was discharged home to continue on following medications; aspirin 81 mg once a day, atorvastatin calcium 40 mg at bedtime, carvedilol 6.25 mg twice a day with meals, cholecalciferol for vitamin D3 1000 International Units once a day, Plavix 75 mg once a day, Zetia 10 mg once a day, famotidine 20 mg twice a day, [place]-3 fatty acid 2000 mg daily, folic acid 1 mg daily, furosemide 40 mg daily, lisinopril 20 mg daily, magnesium oxide 400 mg twice a day, multivitamin with mineral 1 tablet once a day, phenytoin sodium extended release 200 mg daily, phenytoin 200 mg at bedtime, Flomax 0.4 mg daily, PreserVision AREDS soft gel one capsule twice a day, vitamin B complex once a day. FINAL DISCHARGE DIAGNOSES: 1. Valvular heart disease with severe aortic stenosis, low flow with moderate aortic insufficiency, moderate to severe mitral regurgitation, severe systolic dysfunction, ejection fraction 20% by echo. The recommendation was for balloon aortic valvuloplasty/transcatheter aortic valve replacement versus hospice. 2. Coronary artery disease, status post complex percutaneous coronary intervention with stenting. Cardiac enzymes negative. 3. Chronic systolic congestive heart failure. The patient at least by now has compensated ischemic and nonischemic cardiomyopathy, hypertensive heart disease, hyperlipidemia ____. JULY SONG MD DR: LACEY/kamaljit JOB#: [id number] / [id number]
== END 2019-01-01 17:35 | disposition home or self-care (01) | DRG 306 ==
LOC: ER 10:52 → 1 SOUTH 13:25
PROVIDERS: ADMIT Internal Medicine; ATTEND Internal Medicine
DX: I08.0 Rheumatic disorders of both mitral and aortic valves (principal); I50.21 Acute systolic (congestive) heart failure; G81.94 Hemiplegia, unspecified affecting left nondominant side; I42.9 Cardiomyopathy, unspecified; I50.22 Chronic systolic (congestive) heart failure; N17.9 Acute kidney failure, unspecified; I11.0 Hypertensive heart disease with heart failure; E78.5 Hyperlipidemia, unspecified; H35.30 Unspecified macular degeneration; I25.10 Atherosclerotic heart disease of native coronary artery without angina pectoris; I44.7 Left bundle-branch block, unspecified; J44.9 Chronic obstructive pulmonary disease, unspecified; K72.90 Hepatic failure, unspecified without coma; N40.0 Benign prostatic hyperplasia without lower urinary tract symptoms; Z53.20 Procedure and treatment not carried out because of patient's decision for unspecified reasons; Z82.0 Family history of epilepsy and other diseases of the nervous system; Z82.49 Family history of ischemic heart disease and other diseases of the circulatory system; Z85.51 Personal history of malignant neoplasm of bladder; Z86.73 Personal history of transient ischemic attack (TIA), and cerebral infarction without residual deficits; Z87.891 Personal history of nicotine dependence; Z90.49 Acquired absence of other specified parts of digestive tract; N18.9 Chronic kidney disease, unspecified
CPT/HCPCS: 36415; 71045; 80048; 80053; 81001; 83880; 84484; 85025; 87804; 93005; 93306; 96374; J1940; 99285-25

== ENCOUNTER 2019-01-16 08:13 | Emergency (ER) | payer MEDICARE ==
[~2019-01-16] VITALS: Ht 172.7 cm; Wt 53.5 kg
[~2019-01-16 08:13] MED LIST changes: +ASPI-630 PO; +CARV6.25 PO; +CHOL10003 PO; +EZET10TA18 PO; +FOLI1TAB16 PO; +FURO40TA4 PO; +LISI-334 PO; +MAGN400T22 PO; +MULT-690 PO
[2019-01-16] MEDS ORDERED: IPRATRPIUM/ALBUTEROL 0.5/2.5MG 3 ML NEBU. ONE (08:18)
[2019-01-16] MEDS ORDERED: IPRATRPIUM/ALBUTEROL 0.5/2.5MG 3 ML NEBU. NEB ONE (08:30)
--- NOTE | 2019-01-16 08:37 | RAD ---
CHEST AP ONLY Clinical indications: SHORT OF BREATH COMPARISON: December 30, 2018. Findings: Again seen is bilateral interstitial pulmonary edema including bilateral Kerkey B lines. This has increased. No pneumothorax or pleural effusion is seen. The heart size, pulmonary vasculature, mediastinum and both german are stable. Impression: Increase in bilateral interstitial pulmonary edema. Electronically signed by: Tin Ramon MD (01/16/2019 8:34 AM) [facility]
[2019-01-16] MEDS ORDERED: FUROSEMIDE 40 MG/4 ML VIAL IVP ONE (08:45)
[2019-01-16 08:46] LABS: BASO # 0.1 x10^3/uL (0.0-0.2); BASO % 1 % (0-3); EOS # 0.2 x10^3/uL (0.0-0.7); EOS % 2 % (0-3); HEMATOCRIT 39.5 % (39.0-53.0); HEMOGLOBIN 12.7 g/dL (13.0-17.5); LYMPH % 36 % (24-48); MEAN CORPUSCULAR HEMOGLOBIN 32 pg (25-35); MEAN CORPUSCULAR HGB CONC 32 g/dL (31-37); MEAN CORPUSCULAR VOLUME 98 fL (79-100); MONO # 0.7 x10^3/uL (0.0-1.1); MONO % 9 % (0-9); NEUT # 4.4 x10^3uL (1.8-7.7); NEUT % 53 % (31-73); PLATELET COUNT 310 x10^3/uL (140-400); RED BLOOD COUNT 4.03 x10^6/uL (4.30-5.70); WHITE BLOOD COUNT 8.3 x10^3/uL (4.0-11.0)
--- NOTE | 2019-01-16 08:54 | PHYS DOC ---
Past History Past Medical History: COPD, Hypertension, Stroke Past Surgical History: Appendectomy, Cancer Surgery, Other Smoking: Non-smoker Alcohol Use: None Drug Use: None Adult General Chief Complaint Chief Complaint: SHORTNESS OF BREATH HPI HPI 78-year-old male presents via EMS with shortness of breath. Most history comes from EMS and the patient's family since he has speech difficulty from previous stroke. The patient has had issues with intermittent shortness of breath lately. The shortness of breath was worse this morning after he woke up. EMS had him on 6 L in the ambulance. He denies chest pain. He was admitted 2 weeks ago with shortness of breath and was told he has pericardial effusion and fluid congestion in the lungs. He was diuresed and discharged home. He is currently being worked up for possible aortic valve replacement. This is being done at [facility]. The patient was not reported to have fever at home. He has been taking 40 mg of Lasix as prescribed. If the patient does need to be admitted, his income tax return preparer has requested he be transferred [facility]. The family is in agreement with this. Review of Systems Review of Systems Constitutional: Denies fever or chills [] Eyes: Denies change in visual acuity, redness, or eye pain [] HENT: Denies nasal congestion or sore throat [] Respiratory: Denies cough or shortness of breath [] Cardiovascular: No additional information not addressed in HPI [] GI: Denies abdominal pain, nausea, vomiting, bloody stools or diarrhea [] : Denies dysuria or hematuria [] Musculoskeletal: Denies back pain or joint pain [] Integument: Denies rash or skin lesions [] Neurologic: Denies headache, focal weakness or sensory changes [] Endocrine: Denies polyuria or polydipsia [] All other systems were reviewed and found to be within normal limits, except as documented in this note. Current Medications Current Medications Current Medications Medications (Trade) Dose Ordered Sig/Marisol Start Time Stop Time Status Last Admin Dose Admin Albuterol/ Ipratropium (Duoneb) 3 ml 1X ONCE 01/16/19 08:30 01/16/19 08:31 UNV 01/16/19 08:22 3 ML Allergies Allergies Allergies Coded Allergies Type Severity Reaction Last Updated Verified No Known Drug Allergies 12/20/17 No Physical Exam Physical Exam Constitutional: Well developed, well nourished, no acute distress, non-toxic appearance. [] HENT: Normocephalic, atraumatic, bilateral external ears normal, oropharynx moist, no oral exudates, nose normal. [] Eyes: PERRLA, EOMI, conjunctiva normal, no discharge. [] Neck: Normal range of motion, no tenderness, supple, no stridor. [] Cardiovascular:Heart rate 112, regular rhythm, systolic murmur [] Lungs & Thorax: Bilateral breath sounds clear to auscultation [] Abdomen: Bowel sounds normal, soft, no tenderness, no masses, no pulsatile masses. [] Skin: Warm, dry, no erythema, no rash. [] Back: No tenderness, no CVA tenderness. [] Extremities: No tenderness, no cyanosis, no clubbing, ROM intact, no edema. [] Neurologic: Alert and oriented X 3, normal motor function, normal sensory function, no focal deficits noted. [] Psychologic: Affect normal, judgement normal, mood normal. [] Current Patient Data Vital Signs Vital Signs Date Time Temp Pulse Resp B/P (MAP) Pulse Ox O2 Delivery O2 Flow Rate FiO2 01/16/19 08:23 95 Nasal Cannula 2.0 EKG EKG Regular rhythm, tachycardia, rate 112, normal axis, left bundle branch block,Th , loss of R-wave height in V4 V5 when compared to EKG for 12/31/18.[] Radiology/Procedures Radiology/Procedures [] Impressions: CHEST AP ONLY Clinical indications: SHORT OF BREATH COMPARISON: December 30, 2018. Findings: Again seen is bilateral interstitial pulmonary edema including bilateral Kerkey B lines. This has increased. No pneumothorax or pleural effusion is seen. The heart size, pulmonary vasculature, mediastinum and both german are stable. Impression: Increase in bilateral interstitial pulmonary edema. Electronically signed by: See Ramon MD (01/16/2019 8:34 AM) [facility] DICTATED AND SIGNED BY: SEE RAMON MD DATE: 01/16/19 0834 CC: ELISABET VICTORIA DO; J LUIS ROD MD ~ Course & Med Decision Making Course & Med Decision Making Pertinent Labs and Imaging studies reviewed. (See chart for details) The patient's chest x-ray shows worse pulmonary edema. I will give 20 mg of Lasix IV as his labs are pending. Further history shows that the patient has aortic stenosis as well as aortic regurgitation. He needs a replacement according to cardiology. His ejection fraction is significantly reduced. The patient's labs are pending at this time, but it appears obvious that the patient will need to be admitted and that he should be transferred to [facility]. The patient's labs remarkable for elevated liver enzymes and a slightly elevated lactic acid of 2.3. The patient does not have a fever. His troponin is within normal limits. Bedside ultrasound did not show significant pericardial effusion. Global cardiac function diminished. I discussed the patient with Dr. Abreu, cardiology and she has accepted the patient for transfer and admission to the CCU at [facility]. He will go by ambulance. [] Dragon Disclaimer Dragon Disclaimer This electronic medical record was generated, in whole or in part, using a voice recognition dictation system. Departure Departure: Impression: Primary Impression: Severe aortic stenosis Additional Impressions: Pulmonary edema cardiac cause Respiratory distress [facility] Condition: GUARDED Referrals: J LUIS ROD MD (PCP) Problem Qualifiers ELISABET VICTORIA DO Jan 16, 2019 08:54
[2019-01-16 09:00] LABS: ALBUMIN 3.1 g/dL (3.4-5.0); ALBUMIN/GLOBULIN RATIO 0.8 (1.0-1.7); CALCIUM 8.7 mg/dL (8.5-10.1); CREATININE 1.2 mg/dL (0.7-1.3); GFR 58.3; POTASSIUM 4.7 mmol/L (3.5-5.1); TOTAL BILIRUBIN 0.2 mg/dL (0.2-1.0); TOTAL PROTEIN 6.9 g/dL (6.4-8.2)
[2019-01-16 10:07] VITALS: BP 130/88
--- NOTE | 2019-01-16 14:18 | EKG ---
[address] [address] Test Date: 2019-01-16 Test Time: 08:30:41 Pat Name: VALARIE POLLACK Department: Room: Gender: M Integrity Assessor: : 1940 Requested By: ELISABET VICTORIA Order Number: [id number] Reading MD: Rich Alfred MD Measurements Intervals [place] Rate: 112 P: -109 VA: 88 QRS: -11 QRSD: 168 T: 132 QT: 368 QTc: 504 Interpretive Statements SINUS TACHYCARDIA LBBB NON-SPECIFIC ST/T CHANGES Electronically Signed On 01-20-2019 11:59:56 CDT by Rich Alfred MD
== END 2019-01-16 10:15 | disposition short-term general hospital (02) ==
LOC: ER 08:13
DX: I35.0 Nonrheumatic aortic (valve) stenosis (principal); I11.0 Hypertensive heart disease with heart failure; I50.1 Left ventricular failure, unspecified; R06.03 Acute respiratory distress; J44.9 Chronic obstructive pulmonary disease, unspecified; Z86.73 Personal history of transient ischemic attack (TIA), and cerebral infarction without residual deficits
CPT/HCPCS: 36415; 71045; 80053; 83605; 83880; 84484; 85025; 85610; 85730; 93005; 94640; 96374; 99285; J1940; J7620

== ENCOUNTER 2019-02-27 19:27 | Emergency (ER) | payer MEDICARE ==
[~2019-02-27] VITALS: Ht 172.7 cm; Wt 52.3 kg
[2019-02-27] MEDS ORDERED: IV RINGERS SOLUTION,LACTATED 1,000 ML IV SCH (19:30)
--- NOTE | 2019-02-27 19:30 | ED.ADGEN ---
Past History Past Medical History: Arthritis, CAD, CHF, COPD, CVA, Hypertension, Stroke, TIA, Other Past Medical History Aortic Stenosis- Past Surgical History: Appendectomy, Cancer Surgery, Other Past Surgical History Aortic stenosis dilation Smoking: Non-smoker Alcohol Use: None Drug Use: None Adult General Chief Complaint Chief Complaint ".. I Fell..".. My hips and back hurts...".." I tripped .. I think... " HPI HPI Patient is a 78 year old male who presents with above hx and complaints of fall at home. Pt. localizes pain in lumbar and pelvic area. Pt recent admission at [facility] and was intubated three days. Pt. had Aortic dilation and Aortic value place on 02/11.. Currently only on Plavix and Aspirin as anti-platelet at this time. Not on any anticoagulant because of prior cerebral bleed. Has know hx. of hypertension, CVA, TIAs, coronary artery disease, CHF, COPD, CADz, Stents x -09/16, aortic valve stenosis with placement THV 02/15, and arthritis. Pt. normally follows with Dr. Winter as primary. Follows at [facility] Pratibha Worley and [place] cardiology at [facility]. Review of Systems Review of Systems Constitutional: Denies fever or chills [] Eyes: Denies change in visual acuity, redness, or eye pain [] HENT: Denies nasal congestion or sore throat [] Respiratory: Denies cough or shortness of breath [] Cardiovascular: No additional information not addressed in HPI [] GI: Denies abdominal pain, nausea, vomiting, bloody stools or diarrhea [] : Denies dysuria or hematuria [] Musculoskeletal: Complaints of low back , pelvic pain . Complaints of chronic arthritis joint pain [] Integument: Denies rash or skin lesions [] Neurologic: Denies headache, focal weakness or sensory changes [] Endocrine: Denies polyuria or polydipsia [] All other systems were reviewed and found to be within normal limits, except as documented in this note. Family History Family History Non-contributory Current Medications Current Medications Current Medications Medications (Trade) Dose Ordered Sig/Marisol Start Time Stop Time Status Last Admin Dose Admin Acetaminophen (Tylenol) 1,000 mg 1X ONCE 02/27/19 20:45 02/27/19 20:55 DC 02/27/19 20:37 1,000 MG Lactated Ringer's 1,000 ml @ 100 mls/hr Q10H 02/27/19 19:30 02/27/19 23:12 DC Morphine Sulfate (Morphine 10mg Syringe) 10 mg 1X ONCE 02/27/19 21:00 02/27/19 21:01 DC Allergies Allergies Allergies Coded Allergies Type Severity Reaction Last Updated Verified No Known Drug Allergies 02/27/19 No Physical Exam Physical Exam Constitutional: Moderate acute distress, non-toxic appearance. [] HENT: Normocephalic, atraumatic, bilateral external ears normal, oropharynx moist, no oral exudates, nose normal. [] Eyes: PERRLA, EOMI, conjunctiva normal, no discharge. [] Neck: Normal range of motion, no tenderness, supple, no stridor. [] Cardiovascular:Heart rate regular rhythm, PMI to Lt, Aortic murmur Lungs & Thorax: Bilateral breath sounds equal at apexes with scattered wheezes and basilar crackles on auscultation [] Abdomen: Bowel sounds normal, soft, no tenderness, no masses, no pulsatile masses. Healing femoral artery cath sites, clips on Rt. Skin: Warm, dry, no erythema, no rash. Poor turgor Back: No tenderness, no CVA tenderness. [] Extremities: No tenderness, no cyanosis, no clubbing, ROM intact, ankle edema. Arthritic changes. bilateral ankle edema. Weakness Rt. arm- old Neurologic: Alert and oriented X 3, move all ext on request, distal sensory function, no new focal deficits noted. Lt facial and Rt arm weakness old CVA- Psychologic: Affect angry, judgement normal, mood normal. [] Current Patient Data Vital Signs Vital Signs Date Time Temp Pulse Resp B/P (MAP) Pulse Ox O2 Delivery O2 Flow Rate FiO2 02/27/19 19:31 98.5 84 20 93/59 (70) 98 Room Air Lab Results Laboratory Tests Test 02/27/19 19:50 White Blood Count 11.8 x10^3/uL (4.0-11.0) H Red Blood Count 3.03 x10^6/uL (4.30-5.70) L Hemoglobin 9.4 g/dL (13.0-17.5) L Hematocrit 28.9 % (39.0-53.0) L Mean Corpuscular Volume 95 fL (79-100) Mean Corpuscular Hemoglobin 31 pg (25-35) Mean Corpuscular Hemoglobin Concent 33 g/dL (31-37) Red Cell Distribution Width 14.9 % (11.5-14.5) H Platelet Count 321 x10^3/uL (140-400) Neutrophils (%) (Auto) 81 % (31-73) H Lymphocytes (%) (Auto) 9 % (24-48) L Monocytes (%) (Auto) 8 % (0-9) Eosinophils (%) (Auto) 1 % (0-3) Basophils (%) (Auto) 1 % (0-3) Neutrophils # (Auto) 9.6 x10^3uL (1.8-7.7) H Lymphocytes # (Auto) 1.1 x10^3/uL (1.0-4.8) Monocytes # (Auto) 0.9 x10^3/uL (0.0-1.1) Eosinophils # (Auto) 0.2 x10^3/uL (0.0-0.7) Basophils # (Auto) 0.1 x10^3/uL (0.0-0.2) Erythrocyte Sedimentation Rate 26 (0-15) H Prothrombin Time 10.4 SEC (9.4-11.4) Prothrombin Time INR 1.0 (0.9-1.1) PTT 24 SEC (23-33) D-Dimer (Pau) > 19.00 mg/L (0.00-0.50) H Sodium Level 140 mmol/L (136-145) Potassium Level 4.4 mmol/L (3.5-5.1) Chloride Level 105 mmol/L (98-107) Carbon Dioxide Level 32 mmol/L (21-32) Anion Gap 3 (6-14) L Blood Urea Nitrogen 36 mg/dL (8-26) H Creatinine 1.2 mg/dL (0.7-1.3) Estimated GFR (Cockcroft-Gault) 58.3 Glucose Level 109 mg/dL (70-99) H Calcium Level 8.5 mg/dL (8.5-10.1) Magnesium Level 2.2 mg/dL (1.8-2.4) Total Bilirubin 0.2 mg/dL (0.2-1.0) Direct Bilirubin < 0.1 mg/dL (0.0-0.2) Aspartate Amino Transferase (AST) 24 U/L (15-37) Alanine Aminotransferase (ALT) 27 U/L (16-63) Alkaline Phosphatase 117 U/L (46-116) H Creatine Kinase 60 U/L (39-308) Troponin I Quantitative < 0.017 ng/mL (0-0.055) VU-Nwr-R-Type Natriuretic Peptide 4404 pg/mL (0-449) H Total Protein 6.3 g/dL (6.4-8.2) L Albumin 2.5 g/dL (3.4-5.0) L Lipase 279 U/L (73-393) EKG EKG My interpretation of EKG shows a sinus rhythm at 77 bpm. Left axis. Marked LVH and ventricular block.[] Radiology/Procedures Radiology/Procedures My interpretation of CT head shows generalized parenchymal atrophy. Has area of Encephalomalacia Lt frontotemporal. No bleed, shift, mass or edema. My duration of pelvic film shows degenerative joint changes but no obvious fracture. CT of lumbar and pelvis shows diffuse lumbar sacral DJD joint changes. Appears to have a new acute comminuted compression fracture of L4. Does have mild central spinal stenosis at L4 and 5. No bone fragments into the central canal. I interpretation chest x-ray shows cardiomegaly. Shows degenerative joint changes of spine. See formal reports when available. Course & Med Decision Making Course & Med Decision Making Pertinent Labs and Imaging studies reviewed. (See chart for details) Discussed labs and preliminary x-ray findings of compression Fx L4, CHF BNP 4,404, and Elevated D-dimer >[address] Aguirre at [facility] Requests pt. to be transfer to [facility]. He would be a direct admit to her service. She is to advised if bed is available at [facility]. 1038. Dr. Todd Advised no anticoagulation or diuresis at this time- felt findings could be related to recent TVH placement and his EF of 30%. Advised the Aspirin and Plavix to continue for his recent stents. [] Final Impression Final Impression 1. Fall 2. Pelvic /Back Pain- L 4 Acute Compression Fx 3. Leukocytosis 11.8 4. Anemia 9.4 5. Elevated D-dimer >19 6. Elevated BUN 36 7. CHF 4,404-BNP 8. Malnutrition 2.5 9. Hx Cardiac Stent August, then Aortic Dilation and THV Implant 02/11 Errol Disclaimer Errol Disclaimer This electronic medical record was generated, in whole or in part, using a voice recognition dictation system. Discharge Summary Visit Information Final Diagnosis Problems Medical Problems: (1) Fall Status: Acute (2) Lumbar back pain Status: Acute Brief Hospital Course Allergies Allergies Coded Allergies Type Severity Reaction Last Updated Verified No Known Drug Allergies 02/27/19 No Vital Signs Vital Signs Date Time Temp Pulse Resp B/P (MAP) Pulse Ox O2 Delivery O2 Flow Rate FiO2 02/27/19 19:31 98.5 84 20 93/59 (70) 98 Room Air Lab Results Laboratory Tests Test 02/27/19 19:50 White Blood Count 11.8 x10^3/uL (4.0-11.0) Red Blood Count 3.03 x10^6/uL (4.30-5.70) Hemoglobin 9.4 g/dL (13.0-17.5) Hematocrit 28.9 % (39.0-53.0) Mean Corpuscular Volume 95 fL (79-100) Mean Corpuscular Hemoglobin 31 pg (25-35) Mean Corpuscular Hemoglobin Concent 33 g/dL (31-37) Red Cell Distribution Width 14.9 % (11.5-14.5) Platelet Count 321 x10^3/uL (140-400) Neutrophils (%) (Auto) 81 % (31-73) Lymphocytes (%) (Auto) 9 % (24-48) Monocytes (%) (Auto) 8 % (0-9) Eosinophils (%) (Auto) 1 % (0-3) Basophils (%) (Auto) 1 % (0-3) Neutrophils # (Auto) 9.6 x10^3uL (1.8-7.7) Lymphocytes # (Auto) 1.1 x10^3/uL (1.0-4.8) Monocytes # (Auto) 0.9 x10^3/uL (0.0-1.1) Eosinophils # (Auto) 0.2 x10^3/uL (0.0-0.7) Basophils # (Auto) 0.1 x10^3/uL (0.0-0.2) Erythrocyte Sedimentation Rate 26 (0-15) Prothrombin Time 10.4 SEC (9.4-11.4) Prothromb Time International Ratio 1.0 (0.9-1.1) Activated Partial Thromboplast Time 24 SEC (23-33) D-Dimer (Pau) > 19.00 mg/L (0.00-0.50) Sodium Level 140 mmol/L (136-145) Potassium Level 4.4 mmol/L (3.5-5.1) Chloride Level 105 mmol/L (98-107) Carbon Dioxide Level 32 mmol/L (21-32) Anion Gap 3 (6-14) Blood Urea Nitrogen 36 mg/dL (8-26) Creatinine 1.2 mg/dL (0.7-1.3) Estimated GFR (Cockcroft-Gault) 58.3 Glucose Level 109 mg/dL (70-99) Calcium Level 8.5 mg/dL (8.5-10.1) Magnesium Level 2.2 mg/dL (1.8-2.4) Total Bilirubin 0.2 mg/dL (0.2-1.0) Direct Bilirubin < 0.1 mg/dL (0.0-0.2) Aspartate Amino Transf (AST/SGOT) 24 U/L (15-37) Alanine Aminotransferase (ALT/SGPT) 27 U/L (16-63) Alkaline Phosphatase 117 U/L (46-116) Creatine Kinase 60 U/L (39-308) Troponin I Quantitative < 0.017 ng/mL (0-0.055) XH-Jxb-T-Type Natriuretic Peptide 4404 pg/mL (0-449) Total Protein 6.3 g/dL (6.4-8.2) Albumin 2.5 g/dL (3.4-5.0) Lipase 279 U/L (73-393) Brief Hospital Course Mr. Garcia is a 78 old male who presented with hx of fall. Transfer to [facility]- Dr. Aguirre. Discharge Information Condition at Discharge: Improved Dischare Medications Current Medications Lactated Ringer's 1,000 ml @ 100 mls/hr Q10H IV ; Start 02/27/19 at 19:30; Stop 02/27/19 at 23:12; Status DC Morphine Sulfate (Morphine 10mg Syringe) 10 mg 1X ONCE SQ ; Start 02/27/19 at 21:00; Stop 02/27/19 at 21:01; Status DC Acetaminophen (Tylenol) 1,000 mg 1X ONCE PO Last administered on 02/27/19at 2 0:37; Admin Dose 1,000 MG; Start 02/27/19 at 20:45; Stop 02/27/19 at 20:55; Status DC Active Scripts Active Reported Preservision Areds Softgel (Vit A/Vit C/Vit E/Zinc/Copper) 1 Each Capsule 1 Each PO BID Potassium Chloride 10 Meq Tablet.er 10 Meq PO DAILY Dilantin (Phenytoin Sodium Extended) 100 Mg Capsule 100 Mg PO DAILY10 Folic Acid 1 Mg Tablet 1 Tab PO DAILY Vitamin D3 (Cholecalciferol (Vitamin D3)) 1,000 Unit Tablet 1 Tab PO DAILY Centrum Silver Men Tablet (Multivit-Min/FA/Lycopen/Lutein) 1 Each Tablet 1 Each PO DAILY Mag-Oxide (Magnesium Oxide) 400 Mg Tablet 1 Tab PO BID Aspirin 81 Mg Tab.chew 81 Mg PO DAILY Dilantin (Phenytoin Sodium Extended) 100 Mg Capsule 200 Mg PO QHS Coreg (Carvedilol) 6.25 Mg Tablet 6.25 Mg PO BIDWMEALS Furosemide 40 Mg Tablet 1 Tab PO DAILY PRN Zetia (Ezetimibe) 10 Mg Tablet 1 Tab PO DAILY Lisinopril 20 Mg Tablet 1 Tab PO DAILY B Complex (Vitamin B Complex) 1 Each Tablet 1 Each PO DAILY Lipitor (Atorvastatin Calcium) 40 Mg Tablet 1 Tab PO QHS Flomax (Tamsulosin Hcl) 0.4 Mg Cap.er.24h 1 Cap PO QHS Preservision Areds Softgel (Vit A/Vit C/Vit E/Zinc/Copper) 1 Each Capsule 1 Each PO BID Famotidine 20 Mg Tablet 1 Tab PO BID Plavix (Clopidogrel Bisulfate) 75 Mg Tablet 1 Tab PO DAILY Dragon Disclaimer This chart was dictated in whole or in part using Voice Recognition software in a busy, high-work load, and often noisy Emergency Department environment. It may contain unintended and wholly unrecognized errors or omissions. PINA WEBB MD February 27, 2019 19:30
--- NOTE | 2019-02-27 19:45 | EKG ---
[address] [address] Test Date: 2019-02-27 Test Time: 19:42:04 Pat Name: VALARIE POLLACK Department: Room: Gender: M Batch Still Operator: : 1940 Requested By: PINA WEBB Order Number: [id number] Reading MD: Measurements Intervals [place] Rate: 77 P: 30 MO: 176 QRS: -12 QRSD: 122 T: 148 QT: 440 QTc: 500 Interpretive Statements SINUS RHYTHM LEFTWARD AXIS LOW LIMB LEAD VOLTAGE LVH WITH REPOLARIZATION ABNORMALITY ABNORMAL ECG RI6.01 No previous ECG available for comparison
[2019-02-27 20:13] LABS: BASO # 0.1 x10^3/uL (0.0-0.2); BASO % 1 % (0-3); EOS # 0.2 x10^3/uL (0.0-0.7); EOS % 1 % (0-3); HEMATOCRIT 28.9 % (39.0-53.0); HEMOGLOBIN 9.4 g/dL (13.0-17.5); LYMPH # 1.1 x10^3/uL (1.0-4.8); LYMPH % 9 % (24-48); MEAN CORPUSCULAR HEMOGLOBIN 31 pg (25-35); MEAN CORPUSCULAR HGB CONC 33 g/dL (31-37); MEAN CORPUSCULAR VOLUME 95 fL (79-100); MONO # 0.9 x10^3/uL (0.0-1.1); MONO % 8 % (0-9); NEUT # 9.6 x10^3uL (1.8-7.7); NEUT % 81 % (31-73); PLATELET COUNT 321 x10^3/uL (140-400); RED BLOOD COUNT 3.03 x10^6/uL (4.30-5.70); RED CELL DISTRIBUTION WIDTH 14.9 % (11.5-14.5); WHITE BLOOD COUNT 11.8 x10^3/uL (4.0-11.0)
[2019-02-27] MEDS ORDERED: PHEN100C PO (20:23)
[2019-02-27] MEDS ORDERED: POTA10TA10 PO (20:26)
[2019-02-27] MEDS ORDERED: VIT1CAPS12 PO (20:26)
[2019-02-27 20:35] LABS: ALBUMIN 2.5 g/dL (3.4-5.0); ALK PHOS 117 U/L (46-116); ALT (SGPT) 27 U/L (16-63); ANION GAP 3 (6-14); AST (SGOT) 24 U/L (15-37); BLOOD UREA NITROGEN 36 mg/dL (8-26); CALCIUM 8.5 mg/dL (8.5-10.1); CARBON DIOXIDE 32 mmol/L (21-32); CHLORIDE 105 mmol/L (98-107); CREATININE 1.2 mg/dL (0.7-1.3); GFR 58.3; GLUCOSE 109 mg/dL (70-99); LIPASE 279 U/L (73-393); MAGNESIUM 2.2 mg/dL (1.8-2.4); POTASSIUM 4.4 mmol/L (3.5-5.1); SODIUM 140 mmol/L (136-145); TOTAL BILIRUBIN 0.2 mg/dL (0.2-1.0); TOTAL PROTEIN 6.3 g/dL (6.4-8.2)
[2019-02-27 20:36] LABS: DIRECT BILIRUBIN < 0.1 mg/dL (0.0-0.2)
[2019-02-27] MEDS ORDERED: ACETAMINOPHEN 500 MG TABLET PO ONE (20:45)
--- NOTE | 2019-02-27 20:54 | RAD ---
CT scan of the head without contrast 02/27/2019 Clinical History: Fall with head trauma. Technique: Unenhanced, contiguous, 5 mm axial sections were obtained through the head. One or more of the following individualized dose reduction techniques were utilized for this study: 1. Automated exposure control. 2. Adjustment of the mA and/or kV according to patient size. 3. Use of iterative reconstruction technique. Findings: Comparison study is dated 08/09/2018. There is generalized parenchymal atrophy. Areas of decreased attenuation are seen within the periventricular and subcortical white matter of both cerebral hemispheres consistent with areas of small vessel ischemic disease. An area of encephalomalacia is seen involving the left frontotemporal lobe, unchanged. A smaller area of encephalomalacia is seen involving left cerebellar hemisphere, unchanged. No acute parenchymal abnormality is seen. No extra-axial fluid collection is noted. No skull fracture is seen. Impression: No acute intracranial abnormality is seen. Electronically signed by: Yonathan Stephen MD (02/27/2019 8:52 PM) [facility]
[2019-02-27] MEDS ORDERED: MORPHINE SULFATE 10 MG/ML SYRINGE. SQ ONE (21:00)
[2019-02-27 21:19] LABS: SEDIMENTATION RATE 26 (0-15)
--- NOTE | 2019-02-27 21:49 | RAD ---
CT scan of the lumbar spine without contrast 02/27/2019 CLINICAL HISTORY: Low back pain post fall. TECHNIQUE: Unenhanced, contiguous, 0.625 mm axial sections were obtained through the lumbar spine. 3 mm reconstructed sagittal, axial and coronal images were obtained. One or more of the following individualized dose reduction techniques were utilized for this study: 1. Automated exposure control. 2. Adjustment of the mA and/or kV according to patient size. 3. Use of iterative reconstruction technique. FINDINGS: Sagittal and coronal reconstructed images demonstrate very mild S-shaped curvature of the thoracolumbar spine. Degenerative changes are seen throughout the lumbar disc spaces consisting of vertebral endplate sclerosis and mild to moderate anterior vertebral body osteophyte formation. Atherosclerotic calcification of the abdominal aorta and its branches is seen. An acute comminuted compression fracture of the L4 vertebral body is seen. This vertebral body has lost approximately 10 percent of its normal height. No retropulsion of bone fragments into the central spinal canal is seen. No additional compression fracture of the lumbar vertebrae is noted. The changes of degenerative disc disease are seen throughout the lumbar disc spaces. These consist of minimal to mild generalized disc bulges, degenerative changes involving the facet joints and mild to moderate ligamentum flavum hypertrophy. These findings result in mild central spinal canal stenosis at L4-5. No neural foraminal stenosis is seen. IMPRESSION: An acute compression fracture is seen involving the L4 vertebral body. No retropulsion of bone fragments into the central spinal canal is noted. Electronically signed by: Yonathan Stephen MD (02/27/2019 9:46 PM) [facility]
--- NOTE | 2019-02-27 21:52 | RAD ---
CT scan of the pelvis without contrast 02/27/2019 CLINICAL HISTORY: Pelvic pain post fall. TECHNIQUE: Unenhanced, contiguous, 0.625 mm axial sections were obtained through the pelvis and both hips. 5 mm reconstructed sagittal, axial and coronal images were obtained. One or more of the following individualized dose reduction techniques were utilized for this study: 1. Automated exposure control. 2. Adjustment of the mA and/or kV according to patient size. 3. Use of iterative reconstruction technique. FINDINGS: No pelvic bone fracture is seen. Both hips are intact. Mild degenerative changes are seen involving both hips. Atherosclerotic calcification of the distal abdominal aorta and its branches is noted. IMPRESSION: No pelvic bone fracture is seen. Electronically signed by: Yonathan Stephen MD (02/27/2019 9:49 PM) [facility]
[2019-02-27 22:30] VITALS: BP 124/68
--- NOTE | 2019-02-28 00:19 | RAD ---
AP portable chest radiograph 02/27/2019 Clinical History: Fall. Chest pain. An AP erect portable digital radiograph of the chest was obtained. Comparison study is dated 01/16/2019. The patient is post TAVR. The cardiac silhouette is mildly enlarged. Atherosclerotic calcification of the thoracic aorta is seen. No acute pulmonary infiltrate is noted. No pneumothorax or pleural effusion is seen. There is diffuse osteopenia the visualized bony structures. Degenerative changes are seen involving the thoracic spine. The osseous structures are grossly intact. IMPRESSION: No acute abnormality is seen. Electronically signed by: Yonathan Stephen MD (02/28/2019 12:16 AM) [facility]
--- NOTE | 2019-02-28 08:25 | RAD ---
Examination: Single frontal view of the pelvis HISTORY: History of fall COMPARISON: None available FINDINGS: The bilateral femoral heads within the acetabula. Moderate joint space loss identified in the bilateral hip joints. Examination is limited due to osseous demineralization. IMPRESSION: 1. No acute osseous findings. 2. Moderate degenerative changes bilateral hip joints. Electronically signed by: Toni Dia MD (02/28/2019 8:22 AM) [facility]
== END 2019-02-27 22:53 | disposition short-term general hospital (02) ==
LOC: ER 19:27
DX: S32.040A Wedge compression fracture of fourth lumbar vertebra, initial encounter for closed fracture (principal); D72.829 Elevated white blood cell count, unspecified; R79.1 Abnormal coagulation profile; I11.0 Hypertensive heart disease with heart failure; I50.9 Heart failure, unspecified; E46 Unspecified protein-calorie malnutrition; R79.89 Other specified abnormal findings of blood chemistry; M19.90 Unspecified osteoarthritis, unspecified site; I25.10 Atherosclerotic heart disease of native coronary artery without angina pectoris; J44.9 Chronic obstructive pulmonary disease, unspecified; Z68.1 Body mass index [BMI] 19.9 or less, adult; Z95.818 Presence of other cardiac implants and grafts; Z86.73 Personal history of transient ischemic attack (TIA), and cerebral infarction without residual deficits; W01.0XXA Fall on same level from slipping, tripping and stumbling without subsequent striking against object, initial encounter; Y93.89 Activity, other specified; Y92.098 Other place in other non-institutional residence as the place of occurrence of the external cause; Y99.8 Other external cause status
CPT/HCPCS: 36415; 70450; 71045; 72131; 72170; 72192; 80048; 80076; 82550; 83690; 83735; 83880; 84443; 84484; 85025; 85379; 85610; 85651; 85730; 93005; 99285-25

== ENCOUNTER → 2020-06-17 | Outpatient (CLI) | payer MEDICARE ==
[~2020-06-17] MED LIST changes: -EZET10TA18 PO; +EZET10TA20 PO; +POTA10TA10 PO
--- NOTE | 2020-06-17 11:16 | RAD ---
Examination: 1. Bilateral digital diagnostic mammogram. 2. Limited right breast ultrasound. INDICATION: 79-year-old man with tender right breast lump and nipple anomaly. COMPARISON: None. TECHNIQUE: 2-D CC and MLO views of both breasts were obtained and reviewed with computer-aided detection. Targeted ultrasound of the subareolar right breast was subsequently pursued. Technologist notes that the patient was kyphotic and tender, limiting positioning. FINDINGS: Bilateral digital mammogram shows an oval mass in the subareolar right breast 3.5 cm wide and 2.0 cm deep that correlates with the patient's reported area of palpable tenderness. There is no skin thickening or nipple retraction. The left mammogram is negative. The breasts are almost entirely fatty replaced. Targeted ultrasound of the right breast shows the clinical mass corresponds with an island of fibrous breast tissue showing no suspicious sonographic features. IMPRESSION: Benign right breast findings compatible with gynecomastia. Recommend clinical management, which should include biopsy if there are any clinically suspicious features. BI-RADS Category 2 Benign findings Electronically signed by: Cathy Dunbar MD (06/17/2020 11:13 AM) [id number]
== END | disposition home or self-care (01) ==
LOC: MAMMO 09:35
PROVIDERS: ATTEND Family Medicine
DX: R92.2 Inconclusive mammogram (principal); N63.20 Unspecified lump in the left breast, unspecified quadrant; N62 Hypertrophy of breast
CPT/HCPCS: 76641; 77066

== ENCOUNTER → 2021-05-26 | Outpatient (CLI) | payer MEDICARE ==
[~2021-05-26] MED LIST changes: -LISI-334 PO; +LISI20TA18 PO
[2021-05-26 16:29] LABS: BASO # 0.1 x10^3/uL (0.0-0.2); BASO % 1 % (0-3); EOS # 0.2 x10^3/uL (0.0-0.7); EOS % 3 % (0-3); HEMATOCRIT 38.4 % (39.0-53.0); HEMOGLOBIN 12.9 g/dL (13.0-17.5); LYMPH # 1.7 x10^3/uL (1.0-4.8); LYMPH % 27 % (24-48); MEAN CORPUSCULAR HEMOGLOBIN 34 pg (25-35); MEAN CORPUSCULAR HGB CONC 34 g/dL (31-37); MEAN CORPUSCULAR VOLUME 102 fL (79-100); MONO # 0.9 x10^3/uL (0.0-1.1); MONO % 15 % (0-9); NEUT # 3.4 x10^3uL (1.8-7.7); NEUT % 55 % (31-73); PLATELET COUNT 299 x10^3/uL (140-400); RED BLOOD COUNT 3.78 x10^6/uL (4.30-5.70); RED CELL DISTRIBUTION WIDTH 14.3 % (11.5-14.5); WHITE BLOOD COUNT 6.2 x10^3/uL (4.0-11.0)
[2021-05-26 16:31] LABS: CALCIUM 8.1 mg/dL (8.5-10.1); CREATININE 1.1 mg/dL (0.7-1.3); GFR 64.1; POTASSIUM 4.7 mmol/L (3.5-5.1)
[2021-05-26 16:33] LABS: PHENY 4.9 mcg/mL (10.0-20.0)
== END ==
LOC: LAB 15:22
PROVIDERS: ATTEND Specialist
DX: D50.0 Iron deficiency anemia secondary to blood loss (chronic) (principal); E78.2 Mixed hyperlipidemia; N18.2 Chronic kidney disease, stage 2 (mild); G40.909 Epilepsy, unspecified, not intractable, without status epilepticus
CPT/HCPCS: 36415; 80048; 80061; 80185; 85025